=== PATIENT | female | born 1945 | race Caucasian/White ===

== ENCOUNTER 2017-02-21 11:16 | Emergency (ER) | payer MEDICARE ==
[~2017-02-21] VITALS: Ht 154.9 cm; Wt 68.0 kg
[~2017-02-21 11:16] MED LIST: FLUO20TA11 PO; HYDR-2678 PO; INSU100I17 SQ; INSU100V8 SQ; METO-269 PO
[2017-02-21 12:27] LABS: BASO # 0.1 x10^3/uL (0.0-0.2); BASO % 1 % (0-3); EOS % 3 % (0-3); HEMATOCRIT 29.9 % (36.0-47.0); LYMPH # 1.9 x10^3/uL (1.0-4.8); LYMPH % 19 % (24-48); MEAN CORPUSCULAR HEMOGLOBIN 31 pg (25-35); MEAN CORPUSCULAR HGB CONC 34 g/dL (31-37); MEAN CORPUSCULAR VOLUME 91 fL (79-100); MONO % 9 % (0-9); NEUT % 69 % (31-73); PLATELET COUNT 218 x10^3/uL (140-400); RED BLOOD COUNT 3.27 x10^6/uL (3.50-5.40); RED CELL DISTRIBUTION WIDTH 13.3 % (11.5-14.5); WHITE BLOOD COUNT 9.7 x10^3/uL (4.0-11.0)
[2017-02-21 12:37] LABS: CREATININE 1.1 mg/dL (0.6-1.0); GFR 48.8; POTASSIUM 4.8 mmol/L (3.5-5.1)
[2017-02-21 12:44] LABS: ALBUMIN 3.5 g/dL (3.4-5.0); ALBUMIN/GLOBULIN RATIO 1.1 (1.0-1.7); TOTAL BILIRUBIN 0.3 mg/dL (0.2-1.0); TOTAL PROTEIN 6.7 g/dL (6.4-8.2)
[2017-02-21] MEDS ORDERED: cloNIDine HCL 0.1 MG TABLET PO ONE (12:45)
--- NOTE | 2017-02-21 12:46 | ED.ADGEN ---
Past Medical History Past Medical History: Anxiety, Diabetes-Type I, Hypertension Past Surgical History: Cholecystectomy, Hysterectomy, Tubal ligation, Other Additional Past Surgical Histo: unknown Alcohol Use: None Drug Use: None Adult General Chief Complaint Chief Complaint: DIARRHEA HPI HPI Patient is a 71 year old female who presents with multiple episodes of watery diarrhea with fecal incontinence since last night. Patient reports intermittent diarrhea for 2 weeks, which she has treated with Imodium 3 days ago. Diarrhea briefly improved until it recurred last evening. Patient denies dizziness lightheadedness, nausea vomiting or fever. No recent antibiotic use. Patient released from the hospital one month ago for treatment of stroke with 2 week rehabilitation stay prior to returning home. Patient states while in the rehabilitation, she did have a C. difficile exposure to a fellow friend/ patient. Patient noted to be hypertensive on ED arrival. 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 Review of Systems Review of Systems ROS as per HPI. Current Medications Current Medications Current Medications Medications (Trade) Dose Ordered Sig/Emma Start Time Stop Time Status Last Admin Dose Admin Clonidine HCl (Catapres) 0.2 mg 1X ONCE 02/21/17 12:45 02/21/17 12:46 DC 02/21/17 12:46 0.2 MG Oxycodone/ Acetaminophen (Percocet 5/325) 1 tab 1X ONCE 02/21/17 14:30 02/21/17 14:31 DC 02/21/17 14:23 1 TAB Allergies Allergies Allergies Coded Allergies Type Severity Reaction Last Updated Verified Penicillins Allergy Intermediate 05/17/14 Yes Physical Exam Physical Exam Constitutional: Well developed, well nourished, no acute distress. HENT: Normocephalic, atraumatic, bilateral external ears normal. Eyes: PERRLA, EOMI, conjunctiva normal. Neck: Normal range of motion. Cardiovascular:Heart rate regular rhythm. Lungs & Thorax: Bilateral breath sounds clear to auscultation. Abdomen: Bowel sounds normal, soft, no tenderness. Skin: Warm, dry. Back: No tenderness. Extremities: No tenderness, no cyanosis, no clubbing, ROM intact, no edema. Neurologic: Alert and oriented X 3, normal motor function, normal sensory function. Psychologic: Affect normal, judgement normal, mood normal. Current Patient Data Vital Signs Vital Signs Date Time Temp Pulse Resp B/P (MAP) Pulse Ox O2 Delivery O2 Flow Rate FiO2 02/21/17 15:44 72 20 119/54 (75) 97 02/21/17 15:30 Room Air 02/21/17 11:20 99.5 99.5 Lab Values Laboratory Tests Test 02/21/17 12:16 White Blood Count 9.7 x10^3/uL (4.0-11.0) Red Blood Count 3.27 x10^6/uL (3.50-5.40) L Hemoglobin 10.0 g/dL (12.0-15.5) L Hematocrit 29.9 % (36.0-47.0) L Mean Corpuscular Volume 91 fL (79-100) Mean Corpuscular Hemoglobin 31 pg (25-35) Mean Corpuscular Hemoglobin Concent 34 g/dL (31-37) Red Cell Distribution Width 13.3 % (11.5-14.5) Platelet Count 218 x10^3/uL (140-400) Neutrophils (%) (Auto) 69 % (31-73) Lymphocytes (%) (Auto) 19 % (24-48) L Monocytes (%) (Auto) 9 % (0-9) Eosinophils (%) (Auto) 3 % (0-3) Basophils (%) (Auto) 1 % (0-3) Neutrophils # (Auto) 6.7 x10^3uL (1.8-7.7) Lymphocytes # (Auto) 1.9 x10^3/uL (1.0-4.8) Monocytes # (Auto) 0.8 x10^3/uL (0.0-1.1) Eosinophils # (Auto) 0.3 x10^3/uL (0.0-0.7) Basophils # (Auto) 0.1 x10^3/uL (0.0-0.2) Sodium Level 141 mmol/L (136-145) Potassium Level 4.8 mmol/L (3.5-5.1) Chloride Level 107 mmol/L (98-107) Carbon Dioxide Level 26 mmol/L (21-32) Anion Gap 8 (6-14) Blood Urea Nitrogen 19 mg/dL (7-20) Creatinine 1.1 mg/dL (0.6-1.0) H Estimated GFR (Cockcroft-Gault) 48.8 BUN/Creatinine Ratio 17 (6-20) Glucose Level 155 mg/dL (70-99) H Calcium Level 9.0 mg/dL (8.5-10.1) Total Bilirubin 0.3 mg/dL (0.2-1.0) Aspartate Amino Transferase (AST) 25 U/L (15-37) Alanine Aminotransferase (ALT) 16 U/L (14-59) Alkaline Phosphatase 126 U/L (46-116) H Total Protein 6.7 g/dL (6.4-8.2) Albumin 3.5 g/dL (3.4-5.0) Albumin/Globulin Ratio 1.1 (1.0-1.7) Laboratory Tests 02/21/17 12:16 Laboratory Tests 02/21/17 12:16 EKG EKG [] Radiology/Procedures Radiology/Procedures Left hip/pelvis: No obvious displaced fracture.] Course & Med Decision Making Course & Med Decision Making Pertinent Labs and Imaging studies reviewed. (See chart for details) [Patient's abdomen soft, nontender. Lab work unremarkable. Patient does complain of chronic back pain and left hip pain is history of recent fall. No obvious injury on left hip. Will treat supportively with PCP follow-up. Return precautions reviewed.] Dragon Disclaimer Dragon Disclaimer This electronic medical record was generated, in whole or in part, using a voice recognition dictation system. ELE BRUCE DO Feb 21, 2017 12:46
[2017-02-21] MEDS ORDERED: oxyCODONE/APAP 5/325 1 TAB TABLET PO ONE (14:30)
--- NOTE | 2017-02-21 14:48 | RAD ---
Left hip radiograph with pelvis 02/21/2017 at 1440 hours Indication: Patient fell one week ago with left hip pain Comparison: 12/04/2013 Technique: AP view of the pelvis with 2 dedicated views of the left hip Findings: There is no acute fracture or dislocation. Degenerative changes are identified sepsis pubis. No significant joint space narrowing. Mild at the site of the noted along the left greater trochanter, worsened since 12/04/2013. Moderate degenerative changes of the lower lumbar spine appreciated. Impression: No acute fracture or dislocation.
[2017-02-21 15:44] VITALS: BP 119/54
--- NOTE | 2017-02-21 15:52 | EKG ---
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
== END 2017-02-21 15:45 | disposition home or self-care (01) ==
LOC: ER 11:16
DX: R19.7 Diarrhea, unspecified (principal); R15.9 Full incontinence of feces; G89.29 Other chronic pain; M54.9 Dorsalgia, unspecified; M25.552 Pain in left hip; F41.9 Anxiety disorder, unspecified; E10.9 Type 1 diabetes mellitus without complications; I10 Essential (primary) hypertension; Z90.49 Acquired absence of other specified parts of digestive tract; Z90.710 Acquired absence of both cervix and uterus; Z98.51 Tubal ligation status; Z88.0 Allergy status to penicillin
CPT/HCPCS: 36415; 73502; 80053; 85027; 87324; 93005; 99285-25

== ENCOUNTER 2018-08-29 04:21 | Inpatient (IN) | payer MEDICARE ==
[~2018-08-29] VITALS: Ht 154.9 cm; Wt 62.4 kg
[2018-08-29] VITALS (24 sets, daily range): BP systolic 107–190; BP diastolic 49–98
[~2018-08-29 04:21] MED LIST changes: +0.9 % SOD CHL for STERILE FIELD 10 ML DISP.SYRIN. ONE; +ONDANSETRON PF 4 MG/2 ML VIAL. ONE
[2018-08-29] MEDS ORDERED: IV NORMAL SALINE 500ML BAG 500 ML IV ONE (05:00)
[2018-08-29 05:15] LABS: BASO # 0.1 x10^3/uL (0.0-0.2); BASO % 1 % (0-3); EOS # 0.1 x10^3/uL (0.0-0.7); EOS % 2 % (0-3); LYMPH # 1.4 x10^3/uL (1.0-4.8); LYMPH % 19 % (24-48); MEAN CORPUSCULAR HEMOGLOBIN 25 pg (25-35); MEAN CORPUSCULAR HGB CONC 32 g/dL (31-37); MEAN CORPUSCULAR VOLUME 78 fL (79-100); MONO # 0.7 x10^3/uL (0.0-1.1); MONO % 9 % (0-9); NEUT # 5.3 x10^3uL (1.8-7.7); NEUT % 70 % (31-73); PLATELET COUNT 221 x10^3/uL (140-400); RED BLOOD COUNT 2.02 x10^6/uL (3.50-5.40); RED CELL DISTRIBUTION WIDTH 14.6 % (11.5-14.5); WHITE BLOOD COUNT 7.6 x10^3/uL (4.0-11.0)
[2018-08-29 05:21] LABS: HEMATOCRIT 15.7 % (36.0-47.0)
[2018-08-29 05:23] LABS: PROTHROMBIN TIME PATIENT 18.1 SEC (11.7-14.0)
[2018-08-29 05:24] LABS: CALCIUM 8.5 mg/dL (8.5-10.1); CREATININE 1.5 mg/dL (0.6-1.0); GFR 33.9; POTASSIUM 4.2 mmol/L (3.5-5.1)
[2018-08-29 05:31] LABS: ALBUMIN 2.7 g/dL (3.4-5.0); ALBUMIN/GLOBULIN RATIO 0.8 (1.0-1.7); TOTAL BILIRUBIN 0.2 mg/dL (0.2-1.0); TOTAL PROTEIN 5.9 g/dL (6.4-8.2)
--- NOTE | 2018-08-29 05:51 | PHYS DOC ---
Past Medical History Past Medical History: Anxiety, CVA, Depression, Diabetes-Type I, GERD, High Cholesterol, Hypertension Additional Past Medical Histor: URINARY RETENTION, Past Surgical History: Cholecystectomy, Hysterectomy, Tubal ligation, Other Additional Past Surgical Histo: unknown Alcohol Use: None Drug Use: None Adult General Chief Complaint Chief Complaint: HEMATEMESIS/VOMITING BLOOD HPI HPI Patient is a 73 year old female presents with hematemesis starting earlier this morning. Patient is currently on Eloquis and aspirin. He reports dizziness , no chest pain, shortness of breath. Denies abdominal pain. No melena or fever manage she is here. History of acid reflux disease. [] Review of Systems Review of Systems ROS as per HPI[] All other systems were reviewed and found to be within normal limits, except as documented in this note. Current Medications Current Medications Current Medications Medications (Trade) Dose Ordered Sig/Emma Start Time Stop Time Status Last Admin Dose Admin Pantoprazole Sodium (PROTONIX VIAL for IV PUSH) 80 mg 1X ONCE 08/29/18 06:00 08/29/18 06:01 08/29/18 05:42 80 MG Pantoprazole Sodium 80 mg/ Sodium Chloride 100 ml @ 10 mls/hr 1X ONCE 08/29/18 06:00 08/29/18 15:59 08/29/18 05:40 10 MLS/HR Sodium Chloride 500 ml @ 500 mls/hr 1X ONCE 08/29/18 05:00 08/29/18 05:59 08/29/18 04:48 500 MLS/HR Allergies Allergies Allergies Coded Allergies Type Severity Reaction Last Updated Verified Penicillins Allergy Intermediate 05/17/14 Yes Physical Exam Physical Exam Constitutional: Well developed, well nourished, no acute distress, non-toxic appearance. [] HENT: Normocephalic, atraumatic, bilateral external ears normal, oropharynx moist, no oral exudates, nose normal. [] Eyes: PERRLA, EOMI, conjunctiva normal. [] Neck: Normal range of motion, no tenderness. [] Cardiovascular:Heart rate regular rhythm, no murmur [] Lungs & Thorax: Bilateral breath sounds clear to auscultation [] Abdomen: Bowel sounds normal, soft, epigastric pain tenderness. [] Skin: Warm, dry, no erythema, no rash. [] Back: No tenderness. [] Extremities: No tenderness. [] Neurologic: Alert and oriented X 3, normal motor function, normal sensory function, no focal deficits noted. [] Psychologic: Affect normal, judgement normal, mood normal. [] Current Patient Data Vital Signs Vital Signs Date Time Temp Pulse Resp B/P (MAP) Pulse Ox O2 Delivery O2 Flow Rate FiO2 08/29/18 04:21 98.6 103 20 137/90 (106) 99 Room Air 98.6 Lab Values Laboratory Tests Test 08/29/18 04:45 White Blood Count 7.6 x10^3/uL (4.0-11.0) Red Blood Count 2.02 x10^6/uL (3.50-5.40) L Hemoglobin 5.0 g/dL (12.0-15.5) *L Hematocrit 15.7 % (36.0-47.0) *L Mean Corpuscular Volume 78 fL (79-100) L Mean Corpuscular Hemoglobin 25 pg (25-35) Mean Corpuscular Hemoglobin Concent 32 g/dL (31-37) Red Cell Distribution Width 14.6 % (11.5-14.5) H Platelet Count 221 x10^3/uL (140-400) Neutrophils (%) (Auto) 70 % (31-73) Lymphocytes (%) (Auto) 19 % (24-48) L Monocytes (%) (Auto) 9 % (0-9) Eosinophils (%) (Auto) 2 % (0-3) Basophils (%) (Auto) 1 % (0-3) Neutrophils # (Auto) 5.3 x10^3uL (1.8-7.7) Lymphocytes # (Auto) 1.4 x10^3/uL (1.0-4.8) Monocytes # (Auto) 0.7 x10^3/uL (0.0-1.1) Eosinophils # (Auto) 0.1 x10^3/uL (0.0-0.7) Basophils # (Auto) 0.1 x10^3/uL (0.0-0.2) Prothrombin Time 18.1 SEC (11.7-14.0) H Prothrombin Time INR 1.5 (0.8-1.1) H PTT 28 SEC (24-38) Sodium Level 137 mmol/L (136-145) Potassium Level 4.2 mmol/L (3.5-5.1) Chloride Level 105 mmol/L (98-107) Carbon Dioxide Level 22 mmol/L (21-32) Anion Gap 10 (6-14) Blood Urea Nitrogen 26 mg/dL (7-20) H Creatinine 1.5 mg/dL (0.6-1.0) H Estimated GFR (Cockcroft-Gault) 33.9 BUN/Creatinine Ratio 17 (6-20) Glucose Level 236 mg/dL (70-99) H Calcium Level 8.5 mg/dL (8.5-10.1) Total Bilirubin 0.2 mg/dL (0.2-1.0) Aspartate Amino Transferase (AST) 11 U/L (15-37) L Alanine Aminotransferase (ALT) 12 U/L (14-59) L Alkaline Phosphatase 60 U/L (46-116) Total Protein 5.9 g/dL (6.4-8.2) L Albumin 2.7 g/dL (3.4-5.0) L Albumin/Globulin Ratio 0.8 (1.0-1.7) L Lipase 98 U/L (73-393) Laboratory Tests 08/29/18 04:45 Laboratory Tests 08/29/18 04:45 EKG EKG [EKG: reviewed] Radiology/Procedures Radiology/Procedures [] Course & Med Decision Making Course & Med Decision Making Pertinent Labs and Imaging studies reviewed. (See chart for details) [Acute blood loss anemia secondary upper GI bleed. Transfusion ordered. Vital signs stable. GI consulted. Dr. Aguilera consulted. ] Dragon Disclaimer Dragon Disclaimer This electronic medical record was generated, in whole or in part, using a voice recognition dictation system. Departure Departure Impression: Primary Impression: Upper GI bleeding Disposition: ADMITTED INPATIENT Condition: IMPROVED Referrals: KAYDEN AYALA DO (PCP) ELE BRUCE DO Aug 29, 2018 05:51
[2018-08-29] MEDS ORDERED: PANTOPRAZOLE IV PUSH 40 MG VIAL. IVP ONE (06:00)
[2018-08-29] MEDS ORDERED: PANTOPRAZOLE SODIUM IV DRIP 80 MG in IV NORMAL SALINE 100ML 100 ML IV ONE (06:00)
[2018-08-29] MEDS ORDERED: ONDANSETRON PF 4 MG/2 ML VIAL. IV PRN ×2 (06:15→11:30)
[2018-08-29] MEDS ORDERED: IV NORMAL SALINE 1000ML BAG 1,000 ML IV SCH (06:30)
--- NOTE | 2018-08-29 06:44 | EKG ---
[facility] [address] [place] [address] Test Date: 2018-08-29 Test Time: 04:27:11 Pat Name: EMMA ESTRADA Department: Room: [facility] 1 Gender: F Clerical Supervisor: : 1945 Requested By: RODGER RHODES Order Number: [id number] Reading MD: Measurements Intervals [place] Rate: 95 P: 37 DE: 142 QRS: 11 QRSD: 68 T: 59 QT: 354 QTc: 448 Interpretive Statements SINUS RHYTHM NORMAL ECG No previous ECG available for comparison
--- NOTE | 2018-08-29 08:50 | PDOC2 ---
GI CONSULT Reason For Consult: Upper abd pain HPI: HPI: 73 y/o female sent to ER for hematemesis at rehab, admitted to ICU. She's not the best historian - mostly concerned w/ needing pain medication for chronic right arm and right leg pain since her stroke. She thinks she vomited red blood a couple times in the last 24 hours. Per RN, no bleeding since admission. Labs notable for Hgb 5 - has transfused 1 unit and is on PPI drip. MCV 78, INR 1.5, BUN 26, Cr 1.5. For comparison, Hgb was 10 in 02/2017 and 12.6 in 05/2014. Both BUN and Cr elevated similarly in the past. MCV previously normal. Chart lists Eliquis and ASA - she doesn't really know what she takes except probably hydrocodone for pain. Has occasional heartburn and takes "something" for this occasionally. Denies dysphagia, coffee-ground emesis, constipation, melena, hematochezia, or change in appetite. Not sure about weight loss. Has some upper abdominal pain earlier that has resolved. Has occasionally diarrhea "but everyone at rehab does." Reports EGD long ago, unclear why performed or what found. Denies h/o ulcers. Not sure if ever had a colonoscopy but probably did. S/p cholecystectomy. Denies liver or pancreas history. PMH: PMH: mostly obtained per chart - CVA, ?RA, HTN, HLD, DM, subdural hematoma, ?CKD cholecystectomy, hysterectomy, tubal ligation FH: Family History: Cancer (sister - breast) Social History: Smoke: No ALCOHOL: none Drugs: None ROS: GEN: Denies fevers, chills, sweats HEENT: Denies blurred vision, sore throat CV: Denies chest pain RESP: Denies shortness of air, cough GI: Per HPI : Denies hematuria, dysuria ENDO: Denies weight changes NEURO: Denies confusion, dizziness MSK: right arm and leg pain SKIN: Denies jaundice, pruritus Vitals: Vitals: Vital Signs Date Time Temp Pulse Resp B/P (MAP) Pulse Ox O2 Delivery O2 Flow Rate FiO2 08/29/18 06:43 98.9 87 20 127/56 98.9 08/29/18 06:15 100 Room Air Labs: Labs: Laboratory Tests Test 08/29/18 04:45 White Blood Count 7.6 x10^3/uL (4.0-11.0) Red Blood Count 2.02 x10^6/uL (3.50-5.40) Hemoglobin 5.0 g/dL (12.0-15.5) Hematocrit 15.7 % (36.0-47.0) Mean Corpuscular Volume 78 fL (79-100) Mean Corpuscular Hemoglobin 25 pg (25-35) Mean Corpuscular Hemoglobin Concent 32 g/dL (31-37) Red Cell Distribution Width 14.6 % (11.5-14.5) Platelet Count 221 x10^3/uL (140-400) Neutrophils (%) (Auto) 70 % (31-73) Lymphocytes (%) (Auto) 19 % (24-48) Monocytes (%) (Auto) 9 % (0-9) Eosinophils (%) (Auto) 2 % (0-3) Basophils (%) (Auto) 1 % (0-3) Neutrophils # (Auto) 5.3 x10^3uL (1.8-7.7) Lymphocytes # (Auto) 1.4 x10^3/uL (1.0-4.8) Monocytes # (Auto) 0.7 x10^3/uL (0.0-1.1) Eosinophils # (Auto) 0.1 x10^3/uL (0.0-0.7) Basophils # (Auto) 0.1 x10^3/uL (0.0-0.2) Prothrombin Time 18.1 SEC (11.7-14.0) Prothromb Time International Ratio 1.5 (0.8-1.1) Activated Partial Thromboplast Time 28 SEC (24-38) Sodium Level 137 mmol/L (136-145) Potassium Level 4.2 mmol/L (3.5-5.1) Chloride Level 105 mmol/L (98-107) Carbon Dioxide Level 22 mmol/L (21-32) Anion Gap 10 (6-14) Blood Urea Nitrogen 26 mg/dL (7-20) Creatinine 1.5 mg/dL (0.6-1.0) Estimated GFR (Cockcroft-Gault) 33.9 BUN/Creatinine Ratio 17 (6-20) Glucose Level 236 mg/dL (70-99) Calcium Level 8.5 mg/dL (8.5-10.1) Total Bilirubin 0.2 mg/dL (0.2-1.0) Aspartate Amino Transf (AST/SGOT) 11 U/L (15-37) Alanine Aminotransferase (ALT/SGPT) 12 U/L (14-59) Alkaline Phosphatase 60 U/L (46-116) Total Protein 5.9 g/dL (6.4-8.2) Albumin 2.7 g/dL (3.4-5.0) Albumin/Globulin Ratio 0.8 (1.0-1.7) Lipase 98 U/L (73-393) Allergies: Coded Allergies: Penicillins (Verified Allergy, Intermediate, 05/17/14) Medications: Current Medications Medications (Trade) Dose Ordered Sig/Emma Route PRN Reason Start Time Stop Time Status Last Admin Dose Admin Sodium Chloride 500 ml @ 500 mls/hr 1X ONCE IV 08/29/18 05:00 08/29/18 05:59 DC 08/29/18 04:48 Pantoprazole Sodium 80 mg/ Sodium Chloride 100 ml @ 10 mls/hr 1X ONCE IV 08/29/18 06:00 08/29/18 15:59 08/29/18 05:40 Pantoprazole Sodium (PROTONIX VIAL for IV PUSH) 80 mg 1X ONCE IVP 08/29/18 06:00 08/29/18 06:01 DC 08/29/18 05:42 Sodium Chloride 1,000 ml @ 125 mls/hr Q8H IV 08/29/18 06:30 08/30/18 06:29 08/29/18 08:13 PE: GEN: NAD HEENT: Atraumatic, PERRL LUNGS: clear anteriorly, NC HEART: RRR ABD: NABS, S/ND/NT EXTREMITY: No edema SKIN: No rashes, no jaundice NEURO/PSYCH: A & O 3, anxious A/P: A/P: Hematemesis - prior to admission Upper abd pain - resolved, no imaging yet Profound anemia, microcytic H/o CVA on Eliquis and ASA Occasional heartburn CRC screen - unclear S/p cholecystectomy Chronic pain -- Offered EGD this morning, explained procedure and indications in detail - she says she's scared and needs to think about it. Her biggest concern seems to be right arm and right leg pain, requesting pain meds. Transfuse 2 more units pRBCs, continue PPI and NPO, hopefully will consent. PATRICIA SWANSON Aug 29, 2018 08:50
[2018-08-29] MEDS ORDERED: METF500T16 PO (08:55)
[2018-08-29] MEDS ORDERED: TRAZ-85 PO (08:55)
[2018-08-29] MEDS ORDERED: APIX2.5T PO (08:55)
[2018-08-29] MEDS ORDERED: SERT100T PO (08:55)
[2018-08-29] MEDS ORDERED: CHOL2000 PO (08:55)
[2018-08-29] MEDS ORDERED: LISI-334 PO (08:55)
[2018-08-29] MEDS ORDERED: SITA50TA PO (08:55)
[2018-08-29] MEDS ORDERED: ASPI-630 PO (08:55)
[2018-08-29] MEDS ORDERED: PANT40GR PO (08:55)
[2018-08-29] MEDS ORDERED: CARV25TA2 PO (08:55)
[2018-08-29] MEDS ORDERED: DULA1.5P SQ (08:55)
[2018-08-29] MEDS ORDERED: BETH25TA PO (08:55)
[2018-08-29] MEDS ORDERED: BUSP5TAB PO (08:55)
[2018-08-29] MEDS ORDERED: ATOR20TA58 PO (08:55)
[2018-08-29] MEDS ORDERED: LORA10TA68 PO (08:55)
[2018-08-29] MEDS ORDERED: HYDROmorphone 2 MG/ML VIAL IV ONE (09:15)
[2018-08-29] MEDS: IV RINGERS,LACTATED 1000ML 1,000 ML IV SCH ×2 (10:00→18:00)
[2018-08-29] MEDS ORDERED: fentaNYL PF VIAL 100 MCG/2 ML VIAL IV PRN ×2 (10:15)
[2018-08-29] MEDS ORDERED: LIDOCAINE 1% PF 2 ML VIAL. ID PRN (10:15)
[2018-08-29] MEDS ORDERED: MIDAZOLAM HCL/PF 2 MG/2 ML VIAL. IV PRN (10:15)
[2018-08-29] MEDS ORDERED: PROPOFOL 20 ML IV ONE ×2 (10:21→10:45)
--- NOTE | 2018-08-29 11:05 | PDOC4 ---
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
[2018-08-29] MEDS ORDERED: IOHEXOL 300 MG/ML 100ML VIAL. ONE (11:28)
[2018-08-29] MEDS ORDERED: LIDOCAINE WITH 8.4% SOD BICARB 3 ML DISP.SYRIN. ONE (11:29)
--- NOTE | 2018-08-29 11:29 | PDOC1 ---
History and Physical Date of Admission Date of Admission 08/29/18 Identification/Chief Complaint Chief Complaint hematemesis Source Source: Chart review, Patient History of Present Illness History of Present Illness HPI HPI Patient is a 73 year old female presents with hematemesis starting earlier this morning x2 times. pt said she was taking eliquis and ASA for stroke, not sure why. recently in healthcare resort post stroke, rt leg weakness. Pt vomited 2 times blood today, with mild abd pain 1 week ago. no chest pain, sob, fever, chills. denies h/o GI issues, denies NSAIDS, never got EGD OR colonoscopy. denies melena. Hb 5 in ER, 3 u PRBC currently IN icu. Past Medical History Cardiovascular: HTN CENTRAL NERVOUS SYSTEM: CVA Endocrine: Diabetes Past Surgical History Past Surgical History: Cholecystectomy, Tubal Ligation, Hysterectomy Social History Smoke: No ALCOHOL: none Drugs: None Current Problem List Problem List Problems Medical Problems: (1) Upper GI bleeding Status: Acute Current Medications Current Medications Current Medications Medications (Trade) Dose Ordered Sig/Emma Start Time Stop Time Status Last Admin Dose Admin Fentanyl Citrate (Fentanyl 2ml Vial) 50 mcg PRN Q5MIN PRN 08/29/18 10:15 08/29/18 18:00 Hydromorphone HCl (Dilaudid) 0.5 mg 1X ONCE 08/29/18 09:15 08/29/18 09:16 DC 08/29/18 09:19 0.5 MG Lidocaine HCl (Xylocaine-Mpf 1% 2ml Vial) 2 ml 1X PRN PRN 08/29/18 10:15 08/29/18 18:00 Midazolam HCl (Versed) 2 mg PRN 1X PRN 08/29/18 10:15 08/29/18 18:00 Ondansetron HCl (Zofran) 4 mg STK-MED ONCE 08/29/18 00:12 08/29/18 08:18 DC Pantoprazole Sodium (PROTONIX VIAL for IV PUSH) 80 mg 1X ONCE 08/29/18 06:00 08/29/18 06:01 DC 08/29/18 05:42 80 MG Pantoprazole Sodium 80 mg/ Sodium Chloride 100 ml @ 10 mls/hr 1X ONCE 08/29/18 06:00 08/29/18 15:59 08/29/18 05:40 10 MLS/HR Propofol 20 ml @ As Directed STK-MED ONCE 08/29/18 10:45 08/29/18 10:47 DC Ringer's Solution 1,000 ml @ 125 mls/hr Q8H 08/29/18 10:00 08/29/18 18:00 Sodium Chloride (NORMAL SALINE FLUSH for STERILE FIELD) 10 ml STK-MED ONCE 08/29/18 00:12 08/29/18 08:18 DC Allergies Allergies Allergies Coded Allergies Type Severity Reaction Last Updated Verified Penicillins Allergy Intermediate 08/29/18 Yes ROS Review of System CONSTITUTIONAL: No fever or chills EYES: No recent changes SKIN: No rash or itching CARDIOVASCULAR: No chest pain, syncope, palpitations, or edema RESPIRATORY: No SOB or cough GASTROINTESTINAL: No nausea, vomiting or abdominal pain NEUROLOGICAL: No headaches or weakness ENDOCRINE: No cold or heat intolerance GENITOURINARY: No urgency or frequency of urination MUSCULOSKELETAL: No back pain or joint pain LYMPHATICS: No enlarged lymph nodes PSYCHIATRIC: No anxiety or depression Physical Exam Physical Exam GEN.: No apparent distress. Alert and oriented. HEENT: Head is normocephalic, atraumatic NECK: Supple. LUNGS: Clear to auscultation. HEART: RRR, S1, S2 present. Peripheral pulses intact ABDOMEN: Soft, nontender. Positive bowel sounds. EXTREMITIES: Without any cyanosis. LEft LEG strength 4/5, rt leg 3/5 NEUROLOGIC: Normal speech, normal tone PSYCHIATRIC: Normal affect, normal mood. SKIN: No ulcerations Vitals Vitals Vital Signs Date Time Temp Pulse Resp B/P (MAP) Pulse Ox O2 Delivery O2 Flow Rate FiO2 08/29/18 10:55 98.0 94 16 129/60 94 Nasal Cannula 4 98.0 Labs Labs Laboratory Tests Test 08/29/18 04:45 White Blood Count 7.6 x10^3/uL (4.0-11.0) Red Blood Count 2.02 x10^6/uL (3.50-5.40) Hemoglobin 5.0 g/dL (12.0-15.5) Hematocrit 15.7 % (36.0-47.0) Mean Corpuscular Volume 78 fL (79-100) Mean Corpuscular Hemoglobin 25 pg (25-35) Mean Corpuscular Hemoglobin Concent 32 g/dL (31-37) Red Cell Distribution Width 14.6 % (11.5-14.5) Platelet Count 221 x10^3/uL (140-400) Neutrophils (%) (Auto) 70 % (31-73) Lymphocytes (%) (Auto) 19 % (24-48) Monocytes (%) (Auto) 9 % (0-9) Eosinophils (%) (Auto) 2 % (0-3) Basophils (%) (Auto) 1 % (0-3) Neutrophils # (Auto) 5.3 x10^3uL (1.8-7.7) Lymphocytes # (Auto) 1.4 x10^3/uL (1.0-4.8) Monocytes # (Auto) 0.7 x10^3/uL (0.0-1.1) Eosinophils # (Auto) 0.1 x10^3/uL (0.0-0.7) Basophils # (Auto) 0.1 x10^3/uL (0.0-0.2) Prothrombin Time 18.1 SEC (11.7-14.0) Prothromb Time International Ratio 1.5 (0.8-1.1) Activated Partial Thromboplast Time 28 SEC (24-38) Sodium Level 137 mmol/L (136-145) Potassium Level 4.2 mmol/L (3.5-5.1) Chloride Level 105 mmol/L (98-107) Carbon Dioxide Level 22 mmol/L (21-32) Anion Gap 10 (6-14) Blood Urea Nitrogen 26 mg/dL (7-20) Creatinine 1.5 mg/dL (0.6-1.0) Estimated GFR (Cockcroft-Gault) 33.9 BUN/Creatinine Ratio 17 (6-20) Glucose Level 236 mg/dL (70-99) Calcium Level 8.5 mg/dL (8.5-10.1) Total Bilirubin 0.2 mg/dL (0.2-1.0) Aspartate Amino Transf (AST/SGOT) 11 U/L (15-37) Alanine Aminotransferase (ALT/SGPT) 12 U/L (14-59) Alkaline Phosphatase 60 U/L (46-116) Total Protein 5.9 g/dL (6.4-8.2) Albumin 2.7 g/dL (3.4-5.0) Albumin/Globulin Ratio 0.8 (1.0-1.7) Lipase 98 U/L (73-393) Laboratory Tests Test 08/29/18 04:45 White Blood Count 7.6 x10^3/uL (4.0-11.0) Red Blood Count 2.02 x10^6/uL (3.50-5.40) Hemoglobin 5.0 g/dL (12.0-15.5) Hematocrit 15.7 % (36.0-47.0) Mean Corpuscular Volume 78 fL (79-100) Mean Corpuscular Hemoglobin 25 pg (25-35) Mean Corpuscular Hemoglobin Concent 32 g/dL (31-37) Red Cell Distribution Width 14.6 % (11.5-14.5) Platelet Count 221 x10^3/uL (140-400) Neutrophils (%) (Auto) 70 % (31-73) Lymphocytes (%) (Auto) 19 % (24-48) Monocytes (%) (Auto) 9 % (0-9) Eosinophils (%) (Auto) 2 % (0-3) Basophils (%) (Auto) 1 % (0-3) Neutrophils # (Auto) 5.3 x10^3uL (1.8-7.7) Lymphocytes # (Auto) 1.4 x10^3/uL (1.0-4.8) Monocytes # (Auto) 0.7 x10^3/uL (0.0-1.1) Eosinophils # (Auto) 0.1 x10^3/uL (0.0-0.7) Basophils # (Auto) 0.1 x10^3/uL (0.0-0.2) Prothrombin Time 18.1 SEC (11.7-14.0) Prothromb Time International Ratio 1.5 (0.8-1.1) Activated Partial Thromboplast Time 28 SEC (24-38) Sodium Level 137 mmol/L (136-145) Potassium Level 4.2 mmol/L (3.5-5.1) Chloride Level 105 mmol/L (98-107) Carbon Dioxide Level 22 mmol/L (21-32) Anion Gap 10 (6-14) Blood Urea Nitrogen 26 mg/dL (7-20) Creatinine 1.5 mg/dL (0.6-1.0) Estimated GFR (Cockcroft-Gault) 33.9 BUN/Creatinine Ratio 17 (6-20) Glucose Level 236 mg/dL (70-99) Calcium Level 8.5 mg/dL (8.5-10.1) Total Bilirubin 0.2 mg/dL (0.2-1.0) Aspartate Amino Transf (AST/SGOT) 11 U/L (15-37) Alanine Aminotransferase (ALT/SGPT) 12 U/L (14-59) Alkaline Phosphatase 60 U/L (46-116) Total Protein 5.9 g/dL (6.4-8.2) Albumin 2.7 g/dL (3.4-5.0) Albumin/Globulin Ratio 0.8 (1.0-1.7) Lipase 98 U/L (73-393) VTE Prophylaxis Ordered VTE Prophylaxis Devices: Yes VTE Pharmacological Prophylaxi: No Assessment/Plan Assessment/Plan hematemesis 2/2 Dielufuoy lesion anemia 2/2 GIB, upper dm2 htn hld h/o CVA with rt leg weakness on eliquis and asa GERD anxiety depression mild malnutrition benign esophageal stricutre s/p mild dilation in EGD WARD, vasomotor plan: icu care 3 u PRBC today, repeat hb at 4pm and tmr. Fu with GI, EGD today, found stomach dielufuoy lesion with clots npo, ivf NS 75cc/h, protonix drip as per gi hold asa, eliquis, lisinopril. decrease coreg to 6.25mg bid cont some other home meds if ok with gi PTOT FC BART MORROW MD Aug 29, 2018 11:28
[2018-08-29] MEDS ORDERED: ACETAMINOPHEN 325 MG TABLET. PO PRN (11:30)
[2018-08-29] MEDS: IV NORMAL SALINE 1000ML BAG 1,000 ML IV SCH ×2 (11:30→21:04)
[2018-08-29] MEDS ORDERED: DOCUSATE SODIUM 100 MG CAPSULE. PO PRN (11:30)
[2018-08-29] MEDS ORDERED: hydrALAZINE 20 MG/ML VIAL. IVP PRN (11:30)
[2018-08-29] MEDS: SERTRALINE 50 MG TABLET. PO SCH (12:00)
[2018-08-29] MEDS: CARVEDILOL 6.25 MG TABLET. PO SCH ×2 (12:00→17:00)
[2018-08-29] MEDS ORDERED: LISINOPRIL 20 MG TABLET PO SCH (12:00)
[2018-08-29] MEDS ORDERED: CARVEDILOL 12.5 MG TABLET. PO SCH (12:00)
[2018-08-29] MEDS ORDERED: MIDAZOLAM HCL/PF 2 MG/2 ML VIAL. ONE (12:19)
[2018-08-29] MEDS ORDERED: fentaNYL PF VIAL 100 MCG/2 ML VIAL ONE (12:19)
--- NOTE | 2018-08-29 12:47 | PDOC ---
Provider Note Provider Note IR NOTE 73 year old female with Hx of recent hematemesis. Amount difficult to ascertain due to drinking grape and cranberry juice at same time. Has not had any upper or lower gi bleeding since being in the hospital . She went for upper endoscopy which showed no active bleed. Some adherent clot seen in gastric cardia, per conversation with GI dr. Her BP is normal, and has been throughout. She was anemic at presentation with Hb 5. No recheck yet. getting third unit of blood now. She was on eliquis outpatient, last dose yesterday. Cr mildly elevated at 1.5. Recs: 1.Continue supportive care/resuscitation. Angiography would most likely be negative at current time without active bleeding and clinical status does not warrant empiric embolization. Also this will allow for eliquis effect to lessen. 2. If there is rebleeding, and she remains stable, consider repeat endoscopy to avoid contrast in the setting of mild renal failure. If hemostasis not possible via endoscopy, clip localization of bleeding could be performed to help target embolotherapy if ultimately needed. CTA could also be used for localization, but of course requires contrast. If she bleeds and becomes unstable, emergent angiography and embolization should be re-addressed. THIAGO WHEAT MD Aug 29, 2018 12:47
--- NOTE | 2018-08-29 13:25 | PDOC2 ---
KVNG ZEE HOTEL ROOM ATTENDANT 08/29/18 1325: CONSULT Date of Consult Date of Consult DATE: 08/29/18 TIME: 13:16 Reason for Consult Reason for Consult: gi bleed Referring Physician Referring Physician: Dr Aguilera Identification/Chief Complaint Chief Complaint abdominal pain Source Source: Chart review, Patient History of Present Illness Reason for Visit: Very poor historian Keeps telling me she needs to go to bathroom Complaints of leg pain Admitted with hematemesis--Dr Aguilera scoped found adherent clot and Dieulafoy lesion IR has evaluated -no current plans Past Medical History Cardiovascular: HTN CENTRAL NERVOUS SYSTEM: CVA Endocrine: Diabetes Past Surgical History Past Surgical History: Cholecystectomy, Tubal Ligation, Hysterectomy Social History No ALCOHOL: none Drugs: None Current Problem List Problem List Problems Medical Problems: (1) Upper GI bleeding Status: Acute Current Medications Current Medications Current Medications Sodium Chloride 500 ml @ 500 mls/hr 1X ONCE IV Last administered on at 04:48; Start 08/29/18 at 05:00; Stop 08/29/18 at 05:59; Status DC Pantoprazole Sodium 80 mg/ Sodium Chloride 100 ml @ 10 mls/hr 1X ONCE IV Last administered on 08/29/18at 05:40; Start 08/29/18 at 06:00; Stop 08/29/18 at 15:59 Pantoprazole Sodium (PROTONIX VIAL for IV PUSH) 80 mg 1X ONCE IVP Last administered on 08/29/18at 05:42; Start 08/29/18 at 06:00; Stop 08/29/18 at 06:01 ; Status DC Ondansetron HCl (Zofran) 4 mg PRN Q8HRS PRN IV NAUSEA/VOMITING 1ST CHOICE; Start 08/29/18 at 06:15; Stop 08/30/18 at 06:14 Sodium Chloride 1,000 ml @ 125 mls/hr Q8H IV Last administered on 08/29/18at 08 :13; Start 08/29/18 at 06:30; Stop 08/29/18 at 11:26; Status DC Ondansetron HCl (Zofran) 4 mg STK-MED ONCE .ROUTE ; Start 08/29/18 at 00:12; Stop 08/29/18 at 08:18; Status DC Sodium Chloride (NORMAL SALINE FLUSH for STERILE FIELD) 10 ml STK-MED ONCE .ROUTE ; Start 08/29/18 at 00:12; Stop 08/29/18 at 08:18; Status DC Hydromorphone HCl (Dilaudid) 0.5 mg 1X ONCE IV Last administered on 08/29/18at 09:19; Start 08/29/18 at 09:15; Stop 08/29/18 at 09:16; Status DC Midazolam HCl (Versed) 2 mg PRN 1X PRN IV PRIOR TO PROCEDURE; Start 08/29/18 at 10:15; Stop 08/29/18 at 18:00 Fentanyl Citrate (Fentanyl 2ml Vial) 25 mcg PRN Q5MIN PRN IV X 2 DOSES FOR PAIN ; Start 08/29/18 at 10:15; Stop 08/29/18 at 18:00 Fentanyl Citrate (Fentanyl 2ml Vial) 50 mcg PRN Q5MIN PRN IV X 2 DOSES FOR PAIN ; Start 08/29/18 at 10:15; Stop 08/29/18 at 18:00 Ringer's Solution 1,000 ml @ 125 mls/hr Q8H IV ; Start 08/29/18 at 10:00; Stop 08/29/18 at 18:00 Lidocaine HCl (Xylocaine-Mpf 1% 2ml Vial) 2 ml 1X PRN PRN ID IV START; Start at 10:15; Stop 08/29/18 at 18:00 Propofol 20 ml @ As Directed STK-MED ONCE IV ; Start 08/29/18 at 10:21; Stop at 10:22; Status DC Propofol 20 ml @ As Directed STK-MED ONCE IV ; Start 08/29/18 at 10:45; Stop at 10:47; Status DC Atorvastatin Calcium (Lipitor) 20 mg HS PO ; Start 08/29/18 at 21:00 Buspirone HCl (Buspar) 5 mg TID PO ; Start 08/29/18 at 14:00 Lisinopril (Prinivil) 20 mg DAILY PO ; Start 08/29/18 at 12:00; Stop 08/29/18 at 12:00; Status DC Trazodone HCl (Desyrel) 50 mg HS PO ; Start 08/29/18 at 21:00 Carvedilol (Coreg) 12.5 mg BIDWMEALS PO ; Start 08/29/18 at 12:00; Stop at 12:00; Status DC Sertraline HCl (Zoloft) 100 mg DAILY PO ; Start 08/29/18 at 12:00 Carvedilol (Coreg) 6.25 mg BIDWMEALS PO ; Start 08/29/18 at 12:00 Acetaminophen (Tylenol) 650 mg PRN Q6HRS PRN PO FEVER; Start 08/29/18 at 11:30 Ondansetron HCl (Zofran) 4 mg PRN Q6HRS PRN IV NAUSEA/VOMITING; Start 08/29/18 at 11:30 Morphine Sulfate (Morphine Sulfate) 2 mg PRN Q2HR PRN IV MODERATE TO SEVERE PAIN; Start 08/29/18 at 11:30 Tramadol HCl (Ultram) 50 mg PRN Q6HRS PRN PO MILD TO MODERATE PAIN; Start 08/29 at 11:30 Hydralazine HCl (Apresoline Inj) 10 mg PRN Q4HRS PRN IVP ELEVATED BP, SEE COMMENTS; Start 08/29/18 at 11:30 Docusate Sodium (Colace) 100 mg PRN DAILY PRN PO CONSTIPATION; Start 08/29/18 at 11:30 Sodium Chloride 1,000 ml @ 75 mls/hr [id number] IV ; Start 08/29/18 at 11:30 Iohexol (Omnipaque 300 Mg/ml) 100 ml STK-MED ONCE .ROUTE ; Start 08/29/18 at 11: 28; Stop 08/29/18 at 11:30; Status DC Heparin Sodium/ Sodium Chloride 1,500 ml @ As Directed STK-MED ONCE .ROUTE ; Start 08/29/18 at 11:28; Stop 08/29/18 at 11:30; Status DC Lidocaine/Sodium Bicarbonate (Buffered Lidocaine 1%) 3 ml STK-MED ONCE .ROUTE ; Start 08/29/18 at 11:29; Stop 08/29/18 at 11:31; Status DC Midazolam HCl (Versed) 2 mg STK-MED ONCE .ROUTE ; Start 08/29/18 at 12:19; Stop 08/29/18 at 12:21; Status DC Fentanyl Citrate (Fentanyl 2ml Vial) 100 mcg STK-MED ONCE .ROUTE ; Start at 12:19; Stop 08/29/18 at 12:21; Status DC Active Scripts Active Reported Vitamin D (Cholecalciferol (Vitamin D3)) 2,000 Unit Capsule 1 Cap PO DAILY Trulicity (Dulaglutide) 1.5 Mg/0.5 Ml Pen.injctr 1.5 Mg SQ WEEKLYAC Trazodone Hcl 50 Mg Tablet 50 Mg PO HS Zoloft (Sertraline Hcl) 100 Mg Tablet 1 Tab PO DAILY Protonix (Pantoprazole Sodium) 40 Mg Granpkt.dr 40 Mg PO DAILY Metformin Hcl 500 Mg Tablet 500 Mg PO BIDWMEALS Lisinopril 20 Mg Tablet 1 Tab PO DAILY Januvia (Sitagliptin Phosphate) 50 Mg Tablet 1 Tab PO DAILY Eliquis (Apixaban) 2.5 Mg Tablet 2.5 Mg PO BID Claritin (Loratadine) 10 Mg Tablet 1 Tab PO DAILY Carvedilol 25 Mg Tablet 12.5 Mg PO BIDWMEALS Buspirone Hcl 5 Mg Tablet 1 Tab PO TID Bethanechol Chloride 25 Mg Tablet 25 Mg PO TID Atorvastatin Calcium 20 Mg Tablet 20 Mg PO HS Aspirin 81 Mg Tab.chew 1 Tab PO DAILY Allergies Allergies: Coded Allergies: Penicillins (Verified Allergy, Intermediate, 08/29/18) ROS General: No: Chills, Other (fevers) PSYCHOLOGICAL ROS: YES: Anxiety Eyes: No Blurry vision, No Double vision HEENT: No: Heacaches, Sore Throat Hematological and Lymphatic: YES: Bleeding Problems; No: Blood Clots Respiratory: No: Cough, Shortness of breath Cardiovascular: No Chest Pain, No Palpitations Gastrointestinal: Yes Other (see hpi) Genitourinary: No Dysuria, No Hematuria Musculoskeletal: Yes Pain In: (legs) Skin: No Pruritus, No Rash Physical Exam General: Cooperative, No acute distress HEENT: Atraumatic, Mucous membr. moist/pink Lungs: Clear to auscultation, Normal air movement Heart: Regular rate, Normal S1, Normal S2, No murmurs Abdomen: Soft, No tenderness Extremities: No clubbing, No cyanosis Skin: No rashes, No breakdown Neuro: Normal speech, Sensation intact Psych/Mental Status: Mental status NL, Mood NL MUSCULOSKELETAL: No deformity, No swelling Vitals VITALS Vital Signs Date Time Temp Pulse Resp B/P (MAP) Pulse Ox O2 Delivery O2 Flow Rate FiO2 08/29/18 12:14 99.7 99 16 160/67 99.7 08/29/18 12:00 Room Air 08/29/18 11:15 95 08/29/18 10:55 4 Labs Labs Laboratory Tests Test 08/29/18 04:45 White Blood Count 7.6 x10^3/uL (4.0-11.0) Red Blood Count 2.02 x10^6/uL (3.50-5.40) Hemoglobin 5.0 g/dL (12.0-15.5) Hematocrit 15.7 % (36.0-47.0) Mean Corpuscular Volume 78 fL (79-100) Mean Corpuscular Hemoglobin 25 pg (25-35) Mean Corpuscular Hemoglobin Concent 32 g/dL (31-37) Red Cell Distribution Width 14.6 % (11.5-14.5) Platelet Count 221 x10^3/uL (140-400) Neutrophils (%) (Auto) 70 % (31-73) Lymphocytes (%) (Auto) 19 % (24-48) Monocytes (%) (Auto) 9 % (0-9) Eosinophils (%) (Auto) 2 % (0-3) Basophils (%) (Auto) 1 % (0-3) Neutrophils # (Auto) 5.3 x10^3uL (1.8-7.7) Lymphocytes # (Auto) 1.4 x10^3/uL (1.0-4.8) Monocytes # (Auto) 0.7 x10^3/uL (0.0-1.1) Eosinophils # (Auto) 0.1 x10^3/uL (0.0-0.7) Basophils # (Auto) 0.1 x10^3/uL (0.0-0.2) Prothrombin Time 18.1 SEC (11.7-14.0) Prothromb Time International Ratio 1.5 (0.8-1.1) Activated Partial Thromboplast Time 28 SEC (24-38) Sodium Level 137 mmol/L (136-145) Potassium Level 4.2 mmol/L (3.5-5.1) Chloride Level 105 mmol/L (98-107) Carbon Dioxide Level 22 mmol/L (21-32) Anion Gap 10 (6-14) Blood Urea Nitrogen 26 mg/dL (7-20) Creatinine 1.5 mg/dL (0.6-1.0) Estimated GFR (Cockcroft-Gault) 33.9 BUN/Creatinine Ratio 17 (6-20) Glucose Level 236 mg/dL (70-99) Calcium Level 8.5 mg/dL (8.5-10.1) Total Bilirubin 0.2 mg/dL (0.2-1.0) Aspartate Amino Transf (AST/SGOT) 11 U/L (15-37) Alanine Aminotransferase (ALT/SGPT) 12 U/L (14-59) Alkaline Phosphatase 60 U/L (46-116) Total Protein 5.9 g/dL (6.4-8.2) Albumin 2.7 g/dL (3.4-5.0) Albumin/Globulin Ratio 0.8 (1.0-1.7) Lipase 98 U/L (73-393) Laboratory Tests Test 08/29/18 04:45 White Blood Count 7.6 x10^3/uL (4.0-11.0) Red Blood Count 2.02 x10^6/uL (3.50-5.40) Hemoglobin 5.0 g/dL (12.0-15.5) Hematocrit 15.7 % (36.0-47.0) Mean Corpuscular Volume 78 fL (79-100) Mean Corpuscular Hemoglobin 25 pg (25-35) Mean Corpuscular Hemoglobin Concent 32 g/dL (31-37) Red Cell Distribution Width 14.6 % (11.5-14.5) Platelet Count 221 x10^3/uL (140-400) Neutrophils (%) (Auto) 70 % (31-73) Lymphocytes (%) (Auto) 19 % (24-48) Monocytes (%) (Auto) 9 % (0-9) Eosinophils (%) (Auto) 2 % (0-3) Basophils (%) (Auto) 1 % (0-3) Neutrophils # (Auto) 5.3 x10^3uL (1.8-7.7) Lymphocytes # (Auto) 1.4 x10^3/uL (1.0-4.8) Monocytes # (Auto) 0.7 x10^3/uL (0.0-1.1) Eosinophils # (Auto) 0.1 x10^3/uL (0.0-0.7) Basophils # (Auto) 0.1 x10^3/uL (0.0-0.2) Prothrombin Time 18.1 SEC (11.7-14.0) Prothromb Time International Ratio 1.5 (0.8-1.1) Activated Partial Thromboplast Time 28 SEC (24-38) Sodium Level 137 mmol/L (136-145) Potassium Level 4.2 mmol/L (3.5-5.1) Chloride Level 105 mmol/L (98-107) Carbon Dioxide Level 22 mmol/L (21-32) Anion Gap 10 (6-14) Blood Urea Nitrogen 26 mg/dL (7-20) Creatinine 1.5 mg/dL (0.6-1.0) Estimated GFR (Cockcroft-Gault) 33.9 BUN/Creatinine Ratio 17 (6-20) Glucose Level 236 mg/dL (70-99) Calcium Level 8.5 mg/dL (8.5-10.1) Total Bilirubin 0.2 mg/dL (0.2-1.0) Aspartate Amino Transf (AST/SGOT) 11 U/L (15-37) Alanine Aminotransferase (ALT/SGPT) 12 U/L (14-59) Alkaline Phosphatase 60 U/L (46-116) Total Protein 5.9 g/dL (6.4-8.2) Albumin 2.7 g/dL (3.4-5.0) Albumin/Globulin Ratio 0.8 (1.0-1.7) Lipase 98 U/L (73-393) Assessment/Plan Assessment/Plan Gi bleed scope with adherent clot cardia of stomach consistent with Dieulafoy lesion No current bleeding, receiving transfusion on anticoagulants -hold, INR I.5 no surgical plans currently, IR following for possible embolization if rebleed occurs LAUREN RENAE MD 08/29/18 6279: CONSULT Assessment/Plan Assessment/Plan Pt seen and examined. Agree with Ms. Zee's note Pt denies abd pain, but has been noted to have hematemesis and hematochezia agree with plans for repeat endoscopy and/or angiography will remain available, if these are not successful Thanks for consult! KVNG ZEE APRN Aug 29, 2018 13:25 LAUREN RENAE MD Aug 29, 2018 16:58
[2018-08-29 13:51] LABS: FECAL OB PT POSITIVE (NEG)
[2018-08-29] MEDS: busPIRone 5 MG TABLET. PO SCH ×2 (14:00→21:05)
--- NOTE | 2018-08-29 14:25 | NUR ---
SS following for discharge planning. SS reviewed pt chart and received notification that pt was from [facility], ; [phone]. SS contacted [facility] [place] and was notified that pt is a LTC resident from there facility and was able to return when medically stable.
[2018-08-29] MEDS: MORPHINE SULFATE 4 MG/ML VIAL. IV PRN ×2 (15:35→18:37)
[2018-08-29] MEDS: PANTOPRAZOLE SODIUM IV DRIP 80 MG in IV NORMAL SALINE 100ML 100 ML IV SCH (17:26)
[2018-08-29] MEDS: traZODone 50 MG TABLET. PO SCH (21:04)
[2018-08-29] MEDS: ATORVASTATIN CALCIUM 20 MG TABLET PO SCH (21:04)
[2018-08-30] VITALS (16 sets, daily range): BP systolic 97–184; BP diastolic 59–109
[2018-08-30] MEDS: MORPHINE SULFATE 4 MG/ML VIAL. IV PRN ×3 (00:38→18:37)
[2018-08-30] MEDS: PANTOPRAZOLE SODIUM IV DRIP 80 MG in IV NORMAL SALINE 100ML 100 ML IV SCH ×3 (03:23→22:24)
[2018-08-30 04:53] LABS: BASO # 0.1 x10^3/uL (0.0-0.2); BASO % 1 % (0-3); EOS % 0 % (0-3); HEMATOCRIT 28.5 % (36.0-47.0); LYMPH # 1.6 x10^3/uL (1.0-4.8); LYMPH % 15 % (24-48); MEAN CORPUSCULAR HEMOGLOBIN 28 pg (25-35); MEAN CORPUSCULAR HGB CONC 35 g/dL (31-37); MEAN CORPUSCULAR VOLUME 81 fL (79-100); MONO % 9 % (0-9); NEUT # 8.1 x10^3uL (1.8-7.7); NEUT % 75 % (31-73); PLATELET COUNT 201 x10^3/uL (140-400); RED BLOOD COUNT 3.54 x10^6/uL (3.50-5.40); RED CELL DISTRIBUTION WIDTH 15.2 % (11.5-14.5); WHITE BLOOD COUNT 10.8 x10^3/uL (4.0-11.0)
[2018-08-30 05:21] LABS: ALBUMIN 3.2 g/dL (3.4-5.0); CALCIUM 9.2 mg/dL (8.5-10.1); CREATININE 1.2 mg/dL (0.6-1.0); GFR 43.9; POTASSIUM 3.7 mmol/L (3.5-5.1); TOTAL BILIRUBIN 0.7 mg/dL (0.2-1.0); TOTAL PROTEIN 6.5 g/dL (6.4-8.2)
[2018-08-30] MEDS: SERTRALINE 50 MG TABLET. PO SCH (08:52)
[2018-08-30] MEDS: busPIRone 5 MG TABLET. PO SCH ×3 (08:52→22:24)
[2018-08-30] MEDS: CARVEDILOL 6.25 MG TABLET. PO SCH (08:53)
--- NOTE | 2018-08-30 09:47 | PDOC ---
KVNG ZEE SPEAKING UNIT ASSEMBLER 08/30/18 0947: SURGICAL PROGRESS NOTE Subjective main complaint is leg pain no rectal bleeding, emesis blood tinged x 1 yesterday Vital Signs Vital Signs Date Time Temp Pulse Resp B/P (MAP) Pulse Ox O2 Delivery O2 Flow Rate FiO2 08/30/18 09:00 19 163/75 (104) 99 Room Air 08/30/18 08:53 99 08/30/18 08:00 99.1 99.1 08/30/18 00:38 4.0 I&O Intake and Output 08/30/18 07:01 Intake Total 1262 ml Output Total 1005 ml Balance 257 ml Intake IV Total 1112 ml Blood Product IV Normal Saline Flush 150 ml Output Urine Total 780 ml Stool Total 225 ml General: Alert, Cooperative, No acute distress Abdomen: Normal bowel sounds, Soft, No tenderness Labs Laboratory Tests Test 08/29/18 04:45 08/29/18 07:40 08/29/18 13:15 08/29/18 15:45 White Blood Count 7.6 x10^3/uL (4.0-11.0) Red Blood Count 2.02 x10^6/uL (3.50-5.40) Hemoglobin 5.0 g/dL (12.0-15.5) 10.0 g/dL (12.0-15.5) Hematocrit 15.7 % (36.0-47.0) Mean Corpuscular Volume 78 fL (79-100) Mean Corpuscular Hemoglobin 25 pg (25-35) Mean Corpuscular Hemoglobin Concent 32 g/dL (31-37) Red Cell Distribution Width 14.6 % (11.5-14.5) Platelet Count 221 x10^3/uL (140-400) Neutrophils (%) (Auto) 70 % (31-73) Lymphocytes (%) (Auto) 19 % (24-48) Monocytes (%) (Auto) 9 % (0-9) Eosinophils (%) (Auto) 2 % (0-3) Basophils (%) (Auto) 1 % (0-3) Neutrophils # (Auto) 5.3 x10^3uL (1.8-7.7) Lymphocytes # (Auto) 1.4 x10^3/uL (1.0-4.8) Monocytes # (Auto) 0.7 x10^3/uL (0.0-1.1) Eosinophils # (Auto) 0.1 x10^3/uL (0.0-0.7) Basophils # (Auto) 0.1 x10^3/uL (0.0-0.2) Prothrombin Time 18.1 SEC (11.7-14.0) Prothromb Time International Ratio 1.5 (0.8-1.1) Activated Partial Thromboplast Time 28 SEC (24-38) Sodium Level 137 mmol/L (136-145) Potassium Level 4.2 mmol/L (3.5-5.1) Chloride Level 105 mmol/L (98-107) Carbon Dioxide Level 22 mmol/L (21-32) Anion Gap 10 (6-14) Blood Urea Nitrogen 26 mg/dL (7-20) Creatinine 1.5 mg/dL (0.6-1.0) Estimated GFR (Cockcroft-Gault) 33.9 BUN/Creatinine Ratio 17 (6-20) Glucose Level 236 mg/dL (70-99) Calcium Level 8.5 mg/dL (8.5-10.1) Total Bilirubin 0.2 mg/dL (0.2-1.0) Aspartate Amino Transf (AST/SGOT) 11 U/L (15-37) Alanine Aminotransferase (ALT/SGPT) 12 U/L (14-59) Alkaline Phosphatase 60 U/L (46-116) Total Protein 5.9 g/dL (6.4-8.2) Albumin 2.7 g/dL (3.4-5.0) Albumin/Globulin Ratio 0.8 (1.0-1.7) Lipase 98 U/L (73-393) Nasal Screen MRSA (PCR) Negative (Negative) Stool Occult Blood Positive (NEG) Test 08/30/18 04:00 White Blood Count 10.8 x10^3/uL (4.0-11.0) Red Blood Count 3.54 x10^6/uL (3.50-5.40) Hemoglobin 10.0 g/dL (12.0-15.5) Hematocrit 28.5 % (36.0-47.0) Mean Corpuscular Volume 81 fL (79-100) Mean Corpuscular Hemoglobin 28 pg (25-35) Mean Corpuscular Hemoglobin Concent 35 g/dL (31-37) Red Cell Distribution Width 15.2 % (11.5-14.5) Platelet Count 201 x10^3/uL (140-400) Neutrophils (%) (Auto) 75 % (31-73) Lymphocytes (%) (Auto) 15 % (24-48) Monocytes (%) (Auto) 9 % (0-9) Eosinophils (%) (Auto) 0 % (0-3) Basophils (%) (Auto) 1 % (0-3) Neutrophils # (Auto) 8.1 x10^3uL (1.8-7.7) Lymphocytes # (Auto) 1.6 x10^3/uL (1.0-4.8) Monocytes # (Auto) 1.0 x10^3/uL (0.0-1.1) Eosinophils # (Auto) 0.0 x10^3/uL (0.0-0.7) Basophils # (Auto) 0.1 x10^3/uL (0.0-0.2) Sodium Level 139 mmol/L (136-145) Potassium Level 3.7 mmol/L (3.5-5.1) Chloride Level 105 mmol/L (98-107) Carbon Dioxide Level 24 mmol/L (21-32) Anion Gap 10 (6-14) Blood Urea Nitrogen 34 mg/dL (7-20) Creatinine 1.2 mg/dL (0.6-1.0) Estimated GFR (Cockcroft-Gault) 43.9 BUN/Creatinine Ratio 28 (6-20) Glucose Level 197 mg/dL (70-99) Calcium Level 9.2 mg/dL (8.5-10.1) Total Bilirubin 0.7 mg/dL (0.2-1.0) Aspartate Amino Transf (AST/SGOT) 14 U/L (15-37) Alanine Aminotransferase (ALT/SGPT) 14 U/L (14-59) Alkaline Phosphatase 58 U/L (46-116) Total Protein 6.5 g/dL (6.4-8.2) Albumin 3.2 g/dL (3.4-5.0) Albumin/Globulin Ratio 1.0 (1.0-1.7) Laboratory Tests Test 08/29/18 13:15 08/29/18 15:45 08/30/18 04:00 Stool Occult Blood Positive (NEG) Hemoglobin 10.0 g/dL (12.0-15.5) 10.0 g/dL (12.0-15.5) White Blood Count 10.8 x10^3/uL (4.0-11.0) Red Blood Count 3.54 x10^6/uL (3.50-5.40) Hematocrit 28.5 % (36.0-47.0) Mean Corpuscular Volume 81 fL (79-100) Mean Corpuscular Hemoglobin 28 pg (25-35) Mean Corpuscular Hemoglobin Concent 35 g/dL (31-37) Red Cell Distribution Width 15.2 % (11.5-14.5) Platelet Count 201 x10^3/uL (140-400) Neutrophils (%) (Auto) 75 % (31-73) Lymphocytes (%) (Auto) 15 % (24-48) Monocytes (%) (Auto) 9 % (0-9) Eosinophils (%) (Auto) 0 % (0-3) Basophils (%) (Auto) 1 % (0-3) Neutrophils # (Auto) 8.1 x10^3uL (1.8-7.7) Lymphocytes # (Auto) 1.6 x10^3/uL (1.0-4.8) Monocytes # (Auto) 1.0 x10^3/uL (0.0-1.1) Eosinophils # (Auto) 0.0 x10^3/uL (0.0-0.7) Basophils # (Auto) 0.1 x10^3/uL (0.0-0.2) Sodium Level 139 mmol/L (136-145) Potassium Level 3.7 mmol/L (3.5-5.1) Chloride Level 105 mmol/L (98-107) Carbon Dioxide Level 24 mmol/L (21-32) Anion Gap 10 (6-14) Blood Urea Nitrogen 34 mg/dL (7-20) Creatinine 1.2 mg/dL (0.6-1.0) Estimated GFR (Cockcroft-Gault) 43.9 BUN/Creatinine Ratio 28 (6-20) Glucose Level 197 mg/dL (70-99) Calcium Level 9.2 mg/dL (8.5-10.1) Total Bilirubin 0.7 mg/dL (0.2-1.0) Aspartate Amino Transf (AST/SGOT) 14 U/L (15-37) Alanine Aminotransferase (ALT/SGPT) 14 U/L (14-59) Alkaline Phosphatase 58 U/L (46-116) Total Protein 6.5 g/dL (6.4-8.2) Albumin 3.2 g/dL (3.4-5.0) Albumin/Globulin Ratio 1.0 (1.0-1.7) Problem List Problems Medical Problems: (1) Upper GI bleeding Status: Acute Assessment/Plan hgb stable supportive measures LAUREN RENAE MD 08/30/18 1410: SURGICAL PROGRESS NOTE Assessment/Plan Pt seen and examined. Agree with MsDejah Zee's note Pt without new c/o abd soft, ND, NTTP labs vitals stable cont supportive care KVNG ZEE APRN Aug 30, 2018 09:47 LAUREN RENAE MD Aug 30, 2018 14:10
[2018-08-30] MEDS: IV NORMAL SALINE 1000ML BAG 1,000 ML IV SCH ×2 (10:26→22:25)
--- NOTE | 2018-08-30 11:59 | PDOC ---
PROGRESS NOTES Chief Complaint Chief Complaint hematemesis 2/2 Dielufoy lesion with blood clots anemia 2/2 GIB, upper. s/p 3u PRBC dm2 htn hld h/o CVA with rt leg weakness on eliquis and asa GERD anxiety depression mild malnutrition benign esophageal stricutre s/p mild dilation in EGD WARD, vasomotor plan: icu care 3 u PRBC , repeat hb at 4pm and tmr. Fu with GI, EGD found stomach dielufuoy lesion with clots npo, ivf NS 75cc/h, protonix drip as per gi if ok with gi, will start clear liquid, change protonix to iv bid. talked to ICU nurse hold asa, eliquis, lisinopril. increase coreg back to 12.5 mg bid cont some other home meds if ok with gi PTOT FC ok transfer out of ICU if ok with gi History of Present Illness History of Present Illness ROS: no fever, chills, sob or chest pain came for hematemesis EGD showed dielufoy lesion with blood clots wo active bleeding 08/30: yesterday has one time vomiting with blood streaks, Hb stable after 3u PRBC. has one time melena. c/o rt leg pain, chronic post stroke, high BP, tachycardia. Vitals Vitals Vital Signs Date Time Temp Pulse Resp B/P (MAP) Pulse Ox O2 Delivery O2 Flow Rate FiO2 08/30/18 11:00 88 21 164/65 (98) 99 Room Air 08/30/18 08:00 99.1 99.1 08/30/18 00:38 4.0 Physical Exam Physical Exam bad hearing rt leg pain General: Alert, Oriented X3, Cooperative, No acute distress Heart: Regular rate, Normal S1, Normal S2, No murmurs Lungs: Clear Abdomen: Normal bowel sounds, Soft, No tenderness Extremities: No clubbing, No cyanosis Skin: No rashes, No breakdown Labs LABS Laboratory Tests Test 08/29/18 13:15 08/29/18 15:45 08/30/18 04:00 Stool Occult Blood Positive (NEG) Hemoglobin 10.0 g/dL (12.0-15.5) 10.0 g/dL (12.0-15.5) White Blood Count 10.8 x10^3/uL (4.0-11.0) Red Blood Count 3.54 x10^6/uL (3.50-5.40) Hematocrit 28.5 % (36.0-47.0) Mean Corpuscular Volume 81 fL (79-100) Mean Corpuscular Hemoglobin 28 pg (25-35) Mean Corpuscular Hemoglobin Concent 35 g/dL (31-37) Red Cell Distribution Width 15.2 % (11.5-14.5) Platelet Count 201 x10^3/uL (140-400) Neutrophils (%) (Auto) 75 % (31-73) Lymphocytes (%) (Auto) 15 % (24-48) Monocytes (%) (Auto) 9 % (0-9) Eosinophils (%) (Auto) 0 % (0-3) Basophils (%) (Auto) 1 % (0-3) Neutrophils # (Auto) 8.1 x10^3uL (1.8-7.7) Lymphocytes # (Auto) 1.6 x10^3/uL (1.0-4.8) Monocytes # (Auto) 1.0 x10^3/uL (0.0-1.1) Eosinophils # (Auto) 0.0 x10^3/uL (0.0-0.7) Basophils # (Auto) 0.1 x10^3/uL (0.0-0.2) Sodium Level 139 mmol/L (136-145) Potassium Level 3.7 mmol/L (3.5-5.1) Chloride Level 105 mmol/L (98-107) Carbon Dioxide Level 24 mmol/L (21-32) Anion Gap 10 (6-14) Blood Urea Nitrogen 34 mg/dL (7-20) Creatinine 1.2 mg/dL (0.6-1.0) Estimated GFR (Cockcroft-Gault) 43.9 BUN/Creatinine Ratio 28 (6-20) Glucose Level 197 mg/dL (70-99) Calcium Level 9.2 mg/dL (8.5-10.1) Total Bilirubin 0.7 mg/dL (0.2-1.0) Aspartate Amino Transf (AST/SGOT) 14 U/L (15-37) Alanine Aminotransferase (ALT/SGPT) 14 U/L (14-59) Alkaline Phosphatase 58 U/L (46-116) Total Protein 6.5 g/dL (6.4-8.2) Albumin 3.2 g/dL (3.4-5.0) Albumin/Globulin Ratio 1.0 (1.0-1.7) Assessment and Plan Assessmemt and Plan Problems Medical Problems: (1) Upper GI bleeding Status: Acute Comment Review of Relevant I have reviewed the following items pee (where applicable) has been applied. Labs Laboratory Tests Test 08/29/18 04:45 08/29/18 07:40 08/29/18 13:15 08/29/18 15:45 White Blood Count 7.6 x10^3/uL (4.0-11.0) Red Blood Count 2.02 x10^6/uL (3.50-5.40) Hemoglobin 5.0 g/dL (12.0-15.5) 10.0 g/dL (12.0-15.5) Hematocrit 15.7 % (36.0-47.0) Mean Corpuscular Volume 78 fL (79-100) Mean Corpuscular Hemoglobin 25 pg (25-35) Mean Corpuscular Hemoglobin Concent 32 g/dL (31-37) Red Cell Distribution Width 14.6 % (11.5-14.5) Platelet Count 221 x10^3/uL (140-400) Neutrophils (%) (Auto) 70 % (31-73) Lymphocytes (%) (Auto) 19 % (24-48) Monocytes (%) (Auto) 9 % (0-9) Eosinophils (%) (Auto) 2 % (0-3) Basophils (%) (Auto) 1 % (0-3) Neutrophils # (Auto) 5.3 x10^3uL (1.8-7.7) Lymphocytes # (Auto) 1.4 x10^3/uL (1.0-4.8) Monocytes # (Auto) 0.7 x10^3/uL (0.0-1.1) Eosinophils # (Auto) 0.1 x10^3/uL (0.0-0.7) Basophils # (Auto) 0.1 x10^3/uL (0.0-0.2) Prothrombin Time 18.1 SEC (11.7-14.0) Prothromb Time International Ratio 1.5 (0.8-1.1) Activated Partial Thromboplast Time 28 SEC (24-38) Sodium Level 137 mmol/L (136-145) Potassium Level 4.2 mmol/L (3.5-5.1) Chloride Level 105 mmol/L (98-107) Carbon Dioxide Level 22 mmol/L (21-32) Anion Gap 10 (6-14) Blood Urea Nitrogen 26 mg/dL (7-20) Creatinine 1.5 mg/dL (0.6-1.0) Estimated GFR (Cockcroft-Gault) 33.9 BUN/Creatinine Ratio 17 (6-20) Glucose Level 236 mg/dL (70-99) Calcium Level 8.5 mg/dL (8.5-10.1) Total Bilirubin 0.2 mg/dL (0.2-1.0) Aspartate Amino Transf (AST/SGOT) 11 U/L (15-37) Alanine Aminotransferase (ALT/SGPT) 12 U/L (14-59) Alkaline Phosphatase 60 U/L (46-116) Total Protein 5.9 g/dL (6.4-8.2) Albumin 2.7 g/dL (3.4-5.0) Albumin/Globulin Ratio 0.8 (1.0-1.7) Lipase 98 U/L (73-393) Nasal Screen MRSA (PCR) Negative (Negative) Stool Occult Blood Positive (NEG) Test 08/30/18 04:00 White Blood Count 10.8 x10^3/uL (4.0-11.0) Red Blood Count 3.54 x10^6/uL (3.50-5.40) Hemoglobin 10.0 g/dL (12.0-15.5) Hematocrit 28.5 % (36.0-47.0) Mean Corpuscular Volume 81 fL (79-100) Mean Corpuscular Hemoglobin 28 pg (25-35) Mean Corpuscular Hemoglobin Concent 35 g/dL (31-37) Red Cell Distribution Width 15.2 % (11.5-14.5) Platelet Count 201 x10^3/uL (140-400) Neutrophils (%) (Auto) 75 % (31-73) Lymphocytes (%) (Auto) 15 % (24-48) Monocytes (%) (Auto) 9 % (0-9) Eosinophils (%) (Auto) 0 % (0-3) Basophils (%) (Auto) 1 % (0-3) Neutrophils # (Auto) 8.1 x10^3uL (1.8-7.7) Lymphocytes # (Auto) 1.6 x10^3/uL (1.0-4.8) Monocytes # (Auto) 1.0 x10^3/uL (0.0-1.1) Eosinophils # (Auto) 0.0 x10^3/uL (0.0-0.7) Basophils # (Auto) 0.1 x10^3/uL (0.0-0.2) Sodium Level 139 mmol/L (136-145) Potassium Level 3.7 mmol/L (3.5-5.1) Chloride Level 105 mmol/L (98-107) Carbon Dioxide Level 24 mmol/L (21-32) Anion Gap 10 (6-14) Blood Urea Nitrogen 34 mg/dL (7-20) Creatinine 1.2 mg/dL (0.6-1.0) Estimated GFR (Cockcroft-Gault) 43.9 BUN/Creatinine Ratio 28 (6-20) Glucose Level 197 mg/dL (70-99) Calcium Level 9.2 mg/dL (8.5-10.1) Total Bilirubin 0.7 mg/dL (0.2-1.0) Aspartate Amino Transf (AST/SGOT) 14 U/L (15-37) Alanine Aminotransferase (ALT/SGPT) 14 U/L (14-59) Alkaline Phosphatase 58 U/L (46-116) Total Protein 6.5 g/dL (6.4-8.2) Albumin 3.2 g/dL (3.4-5.0) Albumin/Globulin Ratio 1.0 (1.0-1.7) Laboratory Tests Test 08/29/18 13:15 08/29/18 15:45 08/30/18 04:00 Stool Occult Blood Positive (NEG) Hemoglobin 10.0 g/dL (12.0-15.5) 10.0 g/dL (12.0-15.5) White Blood Count 10.8 x10^3/uL (4.0-11.0) Red Blood Count 3.54 x10^6/uL (3.50-5.40) Hematocrit 28.5 % (36.0-47.0) Mean Corpuscular Volume 81 fL (79-100) Mean Corpuscular Hemoglobin 28 pg (25-35) Mean Corpuscular Hemoglobin Concent 35 g/dL (31-37) Red Cell Distribution Width 15.2 % (11.5-14.5) Platelet Count 201 x10^3/uL (140-400) Neutrophils (%) (Auto) 75 % (31-73) Lymphocytes (%) (Auto) 15 % (24-48) Monocytes (%) (Auto) 9 % (0-9) Eosinophils (%) (Auto) 0 % (0-3) Basophils (%) (Auto) 1 % (0-3) Neutrophils # (Auto) 8.1 x10^3uL (1.8-7.7) Lymphocytes # (Auto) 1.6 x10^3/uL (1.0-4.8) Monocytes # (Auto) 1.0 x10^3/uL (0.0-1.1) Eosinophils # (Auto) 0.0 x10^3/uL (0.0-0.7) Basophils # (Auto) 0.1 x10^3/uL (0.0-0.2) Sodium Level 139 mmol/L (136-145) Potassium Level 3.7 mmol/L (3.5-5.1) Chloride Level 105 mmol/L (98-107) Carbon Dioxide Level 24 mmol/L (21-32) Anion Gap 10 (6-14) Blood Urea Nitrogen 34 mg/dL (7-20) Creatinine 1.2 mg/dL (0.6-1.0) Estimated GFR (Cockcroft-Gault) 43.9 BUN/Creatinine Ratio 28 (6-20) Glucose Level 197 mg/dL (70-99) Calcium Level 9.2 mg/dL (8.5-10.1) Total Bilirubin 0.7 mg/dL (0.2-1.0) Aspartate Amino Transf (AST/SGOT) 14 U/L (15-37) Alanine Aminotransferase (ALT/SGPT) 14 U/L (14-59) Alkaline Phosphatase 58 U/L (46-116) Total Protein 6.5 g/dL (6.4-8.2) Albumin 3.2 g/dL (3.4-5.0) Albumin/Globulin Ratio 1.0 (1.0-1.7) Medications Current Medications Sodium Chloride 500 ml @ 500 mls/hr 1X ONCE IV Last administered on at 04:48; Start 08/29/18 at 05:00; Stop 08/29/18 at 05:59; Status DC Pantoprazole Sodium 80 mg/ Sodium Chloride 100 ml @ 10 mls/hr 1X ONCE IV Last administered on 08/29/18at 05:40; Start 08/29/18 at 06:00; Stop 08/29/18 at 15:59; Status DC Pantoprazole Sodium (PROTONIX VIAL for IV PUSH) 80 mg 1X ONCE IVP Last administered on 08/29/18at 05:42; Start 08/29/18 at 06:00; Stop 08/29/18 at 06:01 ; Status DC Ondansetron HCl (Zofran) 4 mg PRN Q8HRS PRN IV NAUSEA/VOMITING 1ST CHOICE Last administered on 08/29/18at 15:38; Start 08/29/18 at 06:15; Stop 08/30/18 at 06:14 ; Status DC Sodium Chloride 1,000 ml @ 125 mls/hr Q8H IV Last administered on 08/29/18at 08 :13; Start 08/29/18 at 06:30; Stop 08/29/18 at 11:26; Status DC Ondansetron HCl (Zofran) 4 mg STK-MED ONCE .ROUTE ; Start 08/29/18 at 00:12; Stop 08/29/18 at 08:18; Status DC Sodium Chloride (NORMAL SALINE FLUSH for STERILE FIELD) 10 ml STK-MED ONCE .ROUTE ; Start 08/29/18 at 00:12; Stop 08/29/18 at 08:18; Status DC Hydromorphone HCl (Dilaudid) 0.5 mg 1X ONCE IV Last administered on 08/29/18at 09:19; Start 08/29/18 at 09:15; Stop 08/29/18 at 09:16; Status DC Midazolam HCl (Versed) 2 mg PRN 1X PRN IV PRIOR TO PROCEDURE; Start 08/29/18 at 10:15; Stop 08/29/18 at 18:00; Status DC Fentanyl Citrate (Fentanyl 2ml Vial) 25 mcg PRN Q5MIN PRN IV X 2 DOSES FOR PAIN ; Start 08/29/18 at 10:15; Stop 08/29/18 at 18:00; Status DC Fentanyl Citrate (Fentanyl 2ml Vial) 50 mcg PRN Q5MIN PRN IV X 2 DOSES FOR PAIN ; Start 08/29/18 at 10:15; Stop 08/29/18 at 18:00; Status DC Ringer's Solution 1,000 ml @ 125 mls/hr Q8H IV ; Start 08/29/18 at 10:00; Stop 08/29/18 at 18:00; Status DC Lidocaine HCl (Xylocaine-Mpf 1% 2ml Vial) 2 ml 1X PRN PRN ID IV START; Start at 10:15; Stop 08/29/18 at 18:00; Status DC Propofol 20 ml @ As Directed STK-MED ONCE IV ; Start 08/29/18 at 10:21; Stop at 10:22; Status DC Propofol 20 ml @ As Directed STK-MED ONCE IV ; Start 08/29/18 at 10:45; Stop at 10:47; Status DC Atorvastatin Calcium (Lipitor) 20 mg HS PO Last administered on 08/29/18at 21:04 ; Start 08/29/18 at 21:00 Buspirone HCl (Buspar) 5 mg TID PO Last administered on 08/30/18at 08:52; Start 08/29/18 at 14:00 Lisinopril (Prinivil) 20 mg DAILY PO ; Start 08/29/18 at 12:00; Stop 08/29/18 at 12:00; Status DC Trazodone HCl (Desyrel) 50 mg HS PO Last administered on 08/29/18at 21:04; Start 08/29/18 at 21:00 Carvedilol (Coreg) 12.5 mg BIDWMEALS PO ; Start 08/29/18 at 12:00; Stop at 12:00; Status DC Sertraline HCl (Zoloft) 100 mg DAILY PO Last administered on 08/30/18at 08:52; Start 08/29/18 at 12:00 Carvedilol (Coreg) 6.25 mg BIDWMEALS PO Last administered on 08/30/18at 08:53; Start 08/29/18 at 12:00 Acetaminophen (Tylenol) 650 mg PRN Q6HRS PRN PO FEVER; Start 08/29/18 at 11:30 Ondansetron HCl (Zofran) 4 mg PRN Q6HRS PRN IV NAUSEA/VOMITING; Start 08/29/18 at 11:30 Morphine Sulfate (Morphine Sulfate) 2 mg PRN Q2HR PRN IV MODERATE TO SEVERE PAIN Last administered on 08/30/18at 10:19; Start 08/29/18 at 11:30 Tramadol HCl (Ultram) 50 mg PRN Q6HRS PRN PO MILD TO MODERATE PAIN; Start 08/29 at 11:30 Hydralazine HCl (Apresoline Inj) 10 mg PRN Q4HRS PRN IVP ELEVATED BP, SEE COMMENTS; Start 08/29/18 at 11:30 Docusate Sodium (Colace) 100 mg PRN DAILY PRN PO CONSTIPATION; Start 08/29/18 at 11:30 Sodium Chloride 1,000 ml @ 75 mls/hr [id number] IV Last administered on at 10:26; Start 08/29/18 at 11:30 Iohexol (Omnipaque 300 Mg/ml) 100 ml STK-MED ONCE .ROUTE ; Start 08/29/18 at 11: 28; Stop 08/29/18 at 11:30; Status DC Heparin Sodium/ Sodium Chloride 1,500 ml @ As Directed STK-MED ONCE .ROUTE ; Start 08/29/18 at 11:28; Stop 08/29/18 at 11:30; Status DC Lidocaine/Sodium Bicarbonate (Buffered Lidocaine 1%) 3 ml STK-MED ONCE .ROUTE ; Start 08/29/18 at 11:29; Stop 08/29/18 at 11:31; Status DC Midazolam HCl (Versed) 2 mg STK-MED ONCE .ROUTE ; Start 08/29/18 at 12:19; Stop 08/29/18 at 12:21; Status DC Fentanyl Citrate (Fentanyl 2ml Vial) 100 mcg STK-MED ONCE .ROUTE ; Start at 12:19; Stop 08/29/18 at 12:21; Status DC Pantoprazole Sodium 80 mg/ Sodium Chloride 100 ml @ 10 mls/hr Q10H IV Last administered on 08/30/18at 03:23; Start 08/29/18 at 17:00 Active Scripts Active Reported Vitamin D (Cholecalciferol (Vitamin D3)) 2,000 Unit Capsule 1 Cap PO DAILY Trulicity (Dulaglutide) 1.5 Mg/0.5 Ml Pen.injctr 1.5 Mg SQ WEEKLYAC Trazodone Hcl 50 Mg Tablet 50 Mg PO HS Zoloft (Sertraline Hcl) 100 Mg Tablet 1 Tab PO DAILY Protonix (Pantoprazole Sodium) 40 Mg Granpkt.dr 40 Mg PO DAILY Metformin Hcl 500 Mg Tablet 500 Mg PO BIDWMEALS Lisinopril 20 Mg Tablet 1 Tab PO DAILY Januvia (Sitagliptin Phosphate) 50 Mg Tablet 1 Tab PO DAILY Eliquis (Apixaban) 2.5 Mg Tablet 2.5 Mg PO BID Claritin (Loratadine) 10 Mg Tablet 1 Tab PO DAILY Carvedilol 25 Mg Tablet 12.5 Mg PO BIDWMEALS Buspirone Hcl 5 Mg Tablet 1 Tab PO TID Bethanechol Chloride 25 Mg Tablet 25 Mg PO TID Atorvastatin Calcium 20 Mg Tablet 20 Mg PO HS Aspirin 81 Mg Tab.chew 1 Tab PO DAILY Vitals/I & O Vital Sign - Last 24 Hours 08/29/18 08/29/18 08/29/18 08/29/18 12:00 12:00 12:14 12:30 Temp 99.7 99.7 99.5 99.7 99.7 99.5 Pulse 100 99 98 Resp 16 18 B/P (MAP) 146/81 (102) 160/67 160/67 Pulse Ox 100 O2 Delivery Room Air Room Air 08/29/18 08/29/18 08/29/18 08/29/18 12:45 13:00 13:00 14:00 Temp 99.7 99.5 99.7 99.7 99.7 99.5 99.7 99.7 Pulse 100 100 100 102 Resp 17 14 18 B/P (MAP) 140/81 168/84 (112) 168/84 164/69 Pulse Ox 99 O2 Delivery Room Air 08/29/18 08/29/18 08/29/18 08/29/18 14:00 15:00 15:00 15:35 Temp 99.7 99.7 99.7 99.7 99.7 99.7 Pulse 102 106 Resp 17 25 B/P (MAP) 164/69 (100) 163/74 163/74 (103) Pulse Ox 97 99 O2 Delivery Room Air Room Air 08/29/18 08/29/18 08/29/18 08/29/18 16:00 16:00 17:00 18:00 Temp 99.7 99.7 Pulse 116 111 Resp 28 17 B/P (MAP) 167/67 (100) 168/72 (104) 162/74 (103) Pulse Ox 99 97 O2 Delivery Room Air Room Air Room Air 08/29/18 08/29/18 08/29/18 08/29/18 18:37 19:00 19:07 20:00 Temp 98.9 98.9 Pulse 114 115 Resp 13 17 17 B/P (MAP) 170/71 (104) 178/98 (124) Pulse Ox 97 95 98 O2 Delivery Room Air Room Air Room Air O2 Flow Rate 4.0 08/29/18 08/29/18 08/29/18 08/29/18 20:18 21:00 22:00 23:00 Pulse 120 110 112 Resp 17 17 14 B/P (MAP) 151/86 (107) 178/70 (106) 190/92 (124) Pulse Ox 96 98 100 O2 Delivery Room Air Room Air Room Air Room Air 08/29/18 08/29/18 08/30/18 08/30/18 23:59 23:59 00:38 01:00 Temp 99.0 99.0 Pulse 113 107 Resp 14 16 14 B/P (MAP) 161/97 (118) 182/82 (115) Pulse Ox 100 100 100 O2 Delivery Room Air Room Air Room Air Room Air O2 Flow Rate 4.0 08/30/18 08/30/18 08/30/18 08/30/18 02:00 03:00 04:00 04:00 Temp 98.6 98.6 Pulse 105 102 101 Resp 16 16 16 B/P (MAP) 140/109 (119) 173/80 (111) 131/63 (85) Pulse Ox 100 99 99 O2 Delivery Room Air Room Air Room Air Room Air 08/30/18 08/30/18 08/30/18 08/30/18 05:00 06:00 07:00 08:00 Temp 99.1 99.1 Pulse 102 89 86 Resp 16 14 14 15 B/P (MAP) 184/79 (114) 123/62 (82) 129/59 (82) 145/71 (95) Pulse Ox 99 98 98 99 O2 Delivery Room Air Room Air Room Air Room Air 08/30/18 08/30/18 08/30/18 08/30/18 08:00 08:53 09:00 10:00 Pulse 99 89 Resp 19 18 B/P (MAP) 163/75 163/75 (104) 126/68 (87) Pulse Ox 99 99 O2 Delivery Room Air Room Air Room Air 08/30/18 08/30/18 08/30/18 10:19 11:00 11:00 Pulse 88 Resp 16 20 21 B/P (MAP) 164/65 (98) Pulse Ox 100 97 99 O2 Delivery Room Air Room Air Room Air Intake and Output 08/29/18 08/29/18 08/30/18 15:01 23:01 07:01 Intake Total 150 ml 100 ml 1012 ml Output Total 625 ml 375 ml 5 ml Balance -475 ml -275 ml 1007 ml BART MORROW MD Aug 30, 2018 11:59
--- NOTE | 2018-08-30 15:37 | PDOC ---
Subjective: Subjective: No further hematemesis. No BM today. Pt denies pain. 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 Plan serial blood counts ppi therapy IR/surgical consult for further therapy possible embolization Objective: Vital Signs: Vital Signs Date Time Temp Pulse Resp B/P (MAP) Pulse Ox O2 Delivery O2 Flow Rate FiO2 08/30/18 13:00 89 17 118/62 (80) 96 Room Air 08/30/18 12:00 99.0 99.0 08/30/18 00:38 4.0 Labs: Laboratory Tests Test 08/29/18 15:45 08/30/18 04:00 Hemoglobin 10.0 g/dL (12.0-15.5) 10.0 g/dL (12.0-15.5) White Blood Count 10.8 x10^3/uL (4.0-11.0) Red Blood Count 3.54 x10^6/uL (3.50-5.40) Hematocrit 28.5 % (36.0-47.0) Mean Corpuscular Volume 81 fL (79-100) Mean Corpuscular Hemoglobin 28 pg (25-35) Mean Corpuscular Hemoglobin Concent 35 g/dL (31-37) Red Cell Distribution Width 15.2 % (11.5-14.5) Platelet Count 201 x10^3/uL (140-400) Neutrophils (%) (Auto) 75 % (31-73) Lymphocytes (%) (Auto) 15 % (24-48) Monocytes (%) (Auto) 9 % (0-9) Eosinophils (%) (Auto) 0 % (0-3) Basophils (%) (Auto) 1 % (0-3) Neutrophils # (Auto) 8.1 x10^3uL (1.8-7.7) Lymphocytes # (Auto) 1.6 x10^3/uL (1.0-4.8) Monocytes # (Auto) 1.0 x10^3/uL (0.0-1.1) Eosinophils # (Auto) 0.0 x10^3/uL (0.0-0.7) Basophils # (Auto) 0.1 x10^3/uL (0.0-0.2) Sodium Level 139 mmol/L (136-145) Potassium Level 3.7 mmol/L (3.5-5.1) Chloride Level 105 mmol/L (98-107) Carbon Dioxide Level 24 mmol/L (21-32) Anion Gap 10 (6-14) Blood Urea Nitrogen 34 mg/dL (7-20) Creatinine 1.2 mg/dL (0.6-1.0) Estimated GFR (Cockcroft-Gault) 43.9 BUN/Creatinine Ratio 28 (6-20) Glucose Level 197 mg/dL (70-99) Calcium Level 9.2 mg/dL (8.5-10.1) Total Bilirubin 0.7 mg/dL (0.2-1.0) Aspartate Amino Transf (AST/SGOT) 14 U/L (15-37) Alanine Aminotransferase (ALT/SGPT) 14 U/L (14-59) Alkaline Phosphatase 58 U/L (46-116) Total Protein 6.5 g/dL (6.4-8.2) Albumin 3.2 g/dL (3.4-5.0) Albumin/Globulin Ratio 1.0 (1.0-1.7) Physical Exam: Physical Exam: PE: GEN: NAD HEENT: Atraumatic, PERRL LUNGS: clear anteriorly, NC HEART: RRR ABD: NABS, S/ND/NT EXTREMITY: No edema SKIN: No rashes, no jaundice NEURO/PSYCH: A & O 3, anxious Assessment & Plan: Assessment : A/P: A/P: Hematemesis - s/p EGD with 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 Hgb stable after PRBCs H/o CVA on Eliquis and ASA Occasional heartburn CRC screen - unclear S/p cholecystectomy Chronic pain Plan: Start clear liquid diet Monitor Hgb ADAT Cont PPI MADY STEPHEN MD Aug 30, 2018 15:37
[2018-08-30 17:08] LABS: BILIRUBIN,URINE NEGATIVE (NEG); CLARITY,URINE CLEAR; COLOR,URINE YELLOW; NITRITE,URINE NEGATIVE (NEG); PROTEIN,URINE >=300 mg/dL (NEG-TRACE); UROBILINOGEN,URINE 0.2 mg/dL (0.2 mg/dL)
[2018-08-30 17:14] LABS: BACTERIA,URINE MANY /HPF (0-FEW); RBC,URINE >40 /HPF (0-2); WBC,URINE >40 /HPF (0-4)
[2018-08-30] MEDS: CARVEDILOL 12.5 MG TABLET. PO SCH (18:37)
--- NOTE | 2018-08-30 19:30 | NUR ---
This nurse received report via telephone from ICU. Patient transferred to floor around 1929. Patient stable at this time, IV fluids continued, no complaints of pain at this time. Will continue to monitor.
[2018-08-30] MEDS: traZODone 50 MG TABLET. PO SCH (22:24)
[2018-08-30] MEDS: ATORVASTATIN CALCIUM 20 MG TABLET PO SCH (22:24)
[2018-08-31] MEDS: traMADol 50 MG TABLET PO PRN ×3 (01:17→14:53)
[2018-08-31 03:40] VITALS: BP 104/68
[2018-08-31 07:00] VITALS: BP 134/77
[2018-08-31 08:16] LABS: BASO # 0.1 x10^3/uL (0.0-0.2); BASO % 1 % (0-3); EOS # 0.2 x10^3/uL (0.0-0.7); EOS % 2 % (0-3); HEMATOCRIT 26.6 % (36.0-47.0); HEMOGLOBIN 9.3 g/dL (12.0-15.5); LYMPH # 1.7 x10^3/uL (1.0-4.8); LYMPH % 18 % (24-48); MEAN CORPUSCULAR HEMOGLOBIN 29 pg (25-35); MEAN CORPUSCULAR HGB CONC 35 g/dL (31-37); MEAN CORPUSCULAR VOLUME 82 fL (79-100); MONO % 10 % (0-9); NEUT # 6.6 x10^3uL (1.8-7.7); NEUT % 69 % (31-73); PLATELET COUNT 195 x10^3/uL (140-400); RED BLOOD COUNT 3.27 x10^6/uL (3.50-5.40); RED CELL DISTRIBUTION WIDTH 15.8 % (11.5-14.5); WHITE BLOOD COUNT 9.5 x10^3/uL (4.0-11.0)
[2018-08-31] MEDS: CARVEDILOL 12.5 MG TABLET. PO SCH ×2 (08:30→17:58)
[2018-08-31] MEDS: busPIRone 5 MG TABLET. PO SCH ×3 (08:30→20:25)
[2018-08-31] MEDS: SERTRALINE 50 MG TABLET. PO SCH (08:30)
[2018-08-31 08:39] LABS: CALCIUM 8.8 mg/dL (8.5-10.1); CREATININE 1.3 mg/dL (0.6-1.0); POTASSIUM 3.9 mmol/L (3.5-5.1)
--- NOTE | 2018-08-31 09:39 | PDOC ---
KVNG ZEE MASS SPECTROSCOPIST 08/31/18 0939: SURGICAL PROGRESS NOTE Subjective leg pain no n/v tolerating liquids Vital Signs Vital Signs Date Time Temp Pulse Resp B/P (MAP) Pulse Ox O2 Delivery O2 Flow Rate FiO2 08/31/18 08:30 94 134/77 08/31/18 07:00 98.0 18 99 Room Air 98.0 I&O Intake and Output 08/31/18 07:01 Intake Total 2057.12 ml Output Total 500 ml Balance 1557.12 ml Intake Oral 100 ml IV Total 1957.12 ml Output Urine Total 500 ml # Voids 5 Abdomen: Soft, No tenderness Labs Laboratory Tests Test 08/29/18 13:15 08/29/18 15:45 08/30/18 04:00 08/30/18 15:45 Stool Occult Blood Positive (NEG) Hemoglobin 10.0 g/dL (12.0-15.5) 10.0 g/dL (12.0-15.5) White Blood Count 10.8 x10^3/uL (4.0-11.0) Red Blood Count 3.54 x10^6/uL (3.50-5.40) Hematocrit 28.5 % (36.0-47.0) Mean Corpuscular Volume 81 fL (79-100) Mean Corpuscular Hemoglobin 28 pg (25-35) Mean Corpuscular Hemoglobin Concent 35 g/dL (31-37) Red Cell Distribution Width 15.2 % (11.5-14.5) Platelet Count 201 x10^3/uL (140-400) Neutrophils (%) (Auto) 75 % (31-73) Lymphocytes (%) (Auto) 15 % (24-48) Monocytes (%) (Auto) 9 % (0-9) Eosinophils (%) (Auto) 0 % (0-3) Basophils (%) (Auto) 1 % (0-3) Neutrophils # (Auto) 8.1 x10^3uL (1.8-7.7) Lymphocytes # (Auto) 1.6 x10^3/uL (1.0-4.8) Monocytes # (Auto) 1.0 x10^3/uL (0.0-1.1) Eosinophils # (Auto) 0.0 x10^3/uL (0.0-0.7) Basophils # (Auto) 0.1 x10^3/uL (0.0-0.2) Sodium Level 139 mmol/L (136-145) Potassium Level 3.7 mmol/L (3.5-5.1) Chloride Level 105 mmol/L (98-107) Carbon Dioxide Level 24 mmol/L (21-32) Anion Gap 10 (6-14) Blood Urea Nitrogen 34 mg/dL (7-20) Creatinine 1.2 mg/dL (0.6-1.0) Estimated GFR (Cockcroft-Gault) 43.9 BUN/Creatinine Ratio 28 (6-20) Glucose Level 197 mg/dL (70-99) Calcium Level 9.2 mg/dL (8.5-10.1) Total Bilirubin 0.7 mg/dL (0.2-1.0) Aspartate Amino Transf (AST/SGOT) 14 U/L (15-37) Alanine Aminotransferase (ALT/SGPT) 14 U/L (14-59) Alkaline Phosphatase 58 U/L (46-116) Total Protein 6.5 g/dL (6.4-8.2) Albumin 3.2 g/dL (3.4-5.0) Albumin/Globulin Ratio 1.0 (1.0-1.7) Urine Collection Type Unknown Urine Color Yellow Urine Clarity Clear Urine pH 6.0 Urine Specific [place] 1.015 Urine Protein >=300 mg/dL (NEG-TRACE) Urine Glucose (UA) Negative mg/dL (NEG) Urine Ketones (Stick) Negative mg/dL (NEG) Urine Blood Large (NEG) Urine Nitrite Negative (NEG) Urine Bilirubin Negative (NEG) Urine Urobilinogen Dipstick 0.2 mg/dL (0.2 mg/dL) Urine Leukocyte Esterase Small (NEG) Urine RBC >40 /HPF (0-2) Urine WBC >40 /HPF (0-4) Urine Bacteria Many /HPF (0-FEW) Test 08/31/18 07:40 White Blood Count 9.5 x10^3/uL (4.0-11.0) Red Blood Count 3.27 x10^6/uL (3.50-5.40) Hemoglobin 9.3 g/dL (12.0-15.5) Hematocrit 26.6 % (36.0-47.0) Mean Corpuscular Volume 82 fL (79-100) Mean Corpuscular Hemoglobin 29 pg (25-35) Mean Corpuscular Hemoglobin Concent 35 g/dL (31-37) Red Cell Distribution Width 15.8 % (11.5-14.5) Platelet Count 195 x10^3/uL (140-400) Neutrophils (%) (Auto) 69 % (31-73) Lymphocytes (%) (Auto) 18 % (24-48) Monocytes (%) (Auto) 10 % (0-9) Eosinophils (%) (Auto) 2 % (0-3) Basophils (%) (Auto) 1 % (0-3) Neutrophils # (Auto) 6.6 x10^3uL (1.8-7.7) Lymphocytes # (Auto) 1.7 x10^3/uL (1.0-4.8) Monocytes # (Auto) 1.0 x10^3/uL (0.0-1.1) Eosinophils # (Auto) 0.2 x10^3/uL (0.0-0.7) Basophils # (Auto) 0.1 x10^3/uL (0.0-0.2) Sodium Level 140 mmol/L (136-145) Potassium Level 3.9 mmol/L (3.5-5.1) Chloride Level 108 mmol/L (98-107) Carbon Dioxide Level 24 mmol/L (21-32) Anion Gap 8 (6-14) Blood Urea Nitrogen 23 mg/dL (7-20) Creatinine 1.3 mg/dL (0.6-1.0) Estimated GFR (Cockcroft-Gault) 40.0 Glucose Level 147 mg/dL (70-99) Calcium Level 8.8 mg/dL (8.5-10.1) Laboratory Tests Test 08/30/18 15:45 08/31/18 07:40 Urine Collection Type Unknown Urine Color Yellow Urine Clarity Clear Urine pH 6.0 Urine Specific [place] 1.015 Urine Protein >=300 mg/dL (NEG-TRACE) Urine Glucose (UA) Negative mg/dL (NEG) Urine Ketones (Stick) Negative mg/dL (NEG) Urine Blood Large (NEG) Urine Nitrite Negative (NEG) Urine Bilirubin Negative (NEG) Urine Urobilinogen Dipstick 0.2 mg/dL (0.2 mg/dL) Urine Leukocyte Esterase Small (NEG) Urine RBC >40 /HPF (0-2) Urine WBC >40 /HPF (0-4) Urine Bacteria Many /HPF (0-FEW) White Blood Count 9.5 x10^3/uL (4.0-11.0) Red Blood Count 3.27 x10^6/uL (3.50-5.40) Hemoglobin 9.3 g/dL (12.0-15.5) Hematocrit 26.6 % (36.0-47.0) Mean Corpuscular Volume 82 fL (79-100) Mean Corpuscular Hemoglobin 29 pg (25-35) Mean Corpuscular Hemoglobin Concent 35 g/dL (31-37) Red Cell Distribution Width 15.8 % (11.5-14.5) Platelet Count 195 x10^3/uL (140-400) Neutrophils (%) (Auto) 69 % (31-73) Lymphocytes (%) (Auto) 18 % (24-48) Monocytes (%) (Auto) 10 % (0-9) Eosinophils (%) (Auto) 2 % (0-3) Basophils (%) (Auto) 1 % (0-3) Neutrophils # (Auto) 6.6 x10^3uL (1.8-7.7) Lymphocytes # (Auto) 1.7 x10^3/uL (1.0-4.8) Monocytes # (Auto) 1.0 x10^3/uL (0.0-1.1) Eosinophils # (Auto) 0.2 x10^3/uL (0.0-0.7) Basophils # (Auto) 0.1 x10^3/uL (0.0-0.2) Sodium Level 140 mmol/L (136-145) Potassium Level 3.9 mmol/L (3.5-5.1) Chloride Level 108 mmol/L (98-107) Carbon Dioxide Level 24 mmol/L (21-32) Anion Gap 8 (6-14) Blood Urea Nitrogen 23 mg/dL (7-20) Creatinine 1.3 mg/dL (0.6-1.0) Estimated GFR (Cockcroft-Gault) 40.0 Glucose Level 147 mg/dL (70-99) Calcium Level 8.8 mg/dL (8.5-10.1) Problem List Problems Medical Problems: (1) Upper GI bleeding Status: Acute Assessment/Plan hgb stable no surgical plans available as needed LAUREN RENAE MD 08/31/18 4198: SURGICAL PROGRESS NOTE Assessment/Plan Pt seen and examined. Agree with MsDejah Zee's note Pt feels well, no N/V abd soft, ND, NTTP will sign off, but please call for questions. KVNG ZEE APRN Aug 31, 2018 09:39 LAUREN RNEAE MD Aug 31, 2018 13:58
[2018-08-31] MEDS: IV NORMAL SALINE 1000ML BAG 1,000 ML IV SCH (09:40)
[2018-08-31] MEDS: PANTOPRAZOLE SODIUM IV DRIP 80 MG in IV NORMAL SALINE 100ML 100 ML IV SCH ×2 (09:40→20:16)
--- NOTE | 2018-08-31 10:26 | PDOC ---
Subjective: Subjective: Tolerating liquids. No further emesis. Objective: Vital Signs: Vital Signs Date Time Temp Pulse Resp B/P (MAP) Pulse Ox O2 Delivery O2 Flow Rate FiO2 08/31/18 08:30 94 134/77 08/31/18 07:00 98.0 18 99 Room Air 98.0 Labs: Laboratory Tests Test 08/30/18 15:45 08/31/18 07:40 Urine Collection Type Unknown Urine Color Yellow Urine Clarity Clear Urine pH 6.0 Urine Specific [place] 1.015 Urine Protein >=300 mg/dL (NEG-TRACE) Urine Glucose (UA) Negative mg/dL (NEG) Urine Ketones (Stick) Negative mg/dL (NEG) Urine Blood Large (NEG) Urine Nitrite Negative (NEG) Urine Bilirubin Negative (NEG) Urine Urobilinogen Dipstick 0.2 mg/dL (0.2 mg/dL) Urine Leukocyte Esterase Small (NEG) Urine RBC >40 /HPF (0-2) Urine WBC >40 /HPF (0-4) Urine Bacteria Many /HPF (0-FEW) White Blood Count 9.5 x10^3/uL (4.0-11.0) Red Blood Count 3.27 x10^6/uL (3.50-5.40) Hemoglobin 9.3 g/dL (12.0-15.5) Hematocrit 26.6 % (36.0-47.0) Mean Corpuscular Volume 82 fL (79-100) Mean Corpuscular Hemoglobin 29 pg (25-35) Mean Corpuscular Hemoglobin Concent 35 g/dL (31-37) Red Cell Distribution Width 15.8 % (11.5-14.5) Platelet Count 195 x10^3/uL (140-400) Neutrophils (%) (Auto) 69 % (31-73) Lymphocytes (%) (Auto) 18 % (24-48) Monocytes (%) (Auto) 10 % (0-9) Eosinophils (%) (Auto) 2 % (0-3) Basophils (%) (Auto) 1 % (0-3) Neutrophils # (Auto) 6.6 x10^3uL (1.8-7.7) Lymphocytes # (Auto) 1.7 x10^3/uL (1.0-4.8) Monocytes # (Auto) 1.0 x10^3/uL (0.0-1.1) Eosinophils # (Auto) 0.2 x10^3/uL (0.0-0.7) Basophils # (Auto) 0.1 x10^3/uL (0.0-0.2) Sodium Level 140 mmol/L (136-145) Potassium Level 3.9 mmol/L (3.5-5.1) Chloride Level 108 mmol/L (98-107) Carbon Dioxide Level 24 mmol/L (21-32) Anion Gap 8 (6-14) Blood Urea Nitrogen 23 mg/dL (7-20) Creatinine 1.3 mg/dL (0.6-1.0) Estimated GFR (Cockcroft-Gault) 40.0 Glucose Level 147 mg/dL (70-99) Calcium Level 8.8 mg/dL (8.5-10.1) Physical Exam: Physical Exam: GEN: NAD HEENT: OP clear CV: S1S2 without murmurs, rubs, or gallops RESP: CTAB without wheezing, rhonchi, or crackles ABD: NABS, SNT/ND EXT: No edema NEURO: AAO x 3 Assessment & Plan: Assessment : A/P: A/P: Hematemesis - s/p EGD with 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 Hgb stable after PRBCs. Now 9.3 H/o CVA on Eliquis and ASA Occasional heartburn CRC screen - unclear S/p cholecystectomy Chronic pain Plan: Monitor Hgb ADAT Cont PPI ggts and plan for PO after 72 hours MADY STEPHEN MD Aug 31, 2018 10:26
[2018-08-31 11:00] VITALS: BP 109/60
[2018-08-31] MEDS: MORPHINE SULFATE 4 MG/ML VIAL. IV PRN ×3 (11:41→20:19)
--- NOTE | 2018-08-31 13:01 | PDOC ---
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 s/p 3u PRBC dm2 htn hld h/o CVA with rt leg weakness on eliquis and asa GERD anxiety depression mild malnutrition benign esophageal stricutre s/p mild dilation in EGD WARD, vasomotor Plan: HB stable GI following EGD found stomach dielufuoy lesion with clots ivf NS 75cc/h, protonix drip as per gi hold asa, eliquis, lisinopril. coreg 12.5 mg bid PTOT FC History of Present Illness History of Present Illness ROS: no fever, chills, sob or chest pain came for hematemesis EGD showed dielufoy lesion with blood clots wo active bleeding 08/30: yesterday has one time vomiting with blood streaks, Hb stable after 3u PRBC. has one time melena. c/o rt leg pain, chronic post stroke, high BP, tachycardia. Vitals Vitals Vital Signs Date Time Temp Pulse Resp B/P (MAP) Pulse Ox O2 Delivery O2 Flow Rate FiO2 08/31/18 11:00 97.8 82 18 109/60 (76) 98 Room Air 97.8 Physical Exam Physical Exam bad hearing rt leg pain General: Alert, Oriented X3, Cooperative, No acute distress Heart: Regular rate, Normal S1, Normal S2, No murmurs Lungs: Clear Abdomen: Soft, No tenderness Extremities: No clubbing, No cyanosis Skin: No rashes, No breakdown Labs LABS Laboratory Tests Test 08/30/18 15:45 08/31/18 07:40 Urine Collection Type Unknown Urine Color Yellow Urine Clarity Clear Urine pH 6.0 Urine Specific [place] 1.015 Urine Protein >=300 mg/dL (NEG-TRACE) Urine Glucose (UA) Negative mg/dL (NEG) Urine Ketones (Stick) Negative mg/dL (NEG) Urine Blood Large (NEG) Urine Nitrite Negative (NEG) Urine Bilirubin Negative (NEG) Urine Urobilinogen Dipstick 0.2 mg/dL (0.2 mg/dL) Urine Leukocyte Esterase Small (NEG) Urine RBC >40 /HPF (0-2) Urine WBC >40 /HPF (0-4) Urine Bacteria Many /HPF (0-FEW) White Blood Count 9.5 x10^3/uL (4.0-11.0) Red Blood Count 3.27 x10^6/uL (3.50-5.40) Hemoglobin 9.3 g/dL (12.0-15.5) Hematocrit 26.6 % (36.0-47.0) Mean Corpuscular Volume 82 fL (79-100) Mean Corpuscular Hemoglobin 29 pg (25-35) Mean Corpuscular Hemoglobin Concent 35 g/dL (31-37) Red Cell Distribution Width 15.8 % (11.5-14.5) Platelet Count 195 x10^3/uL (140-400) Neutrophils (%) (Auto) 69 % (31-73) Lymphocytes (%) (Auto) 18 % (24-48) Monocytes (%) (Auto) 10 % (0-9) Eosinophils (%) (Auto) 2 % (0-3) Basophils (%) (Auto) 1 % (0-3) Neutrophils # (Auto) 6.6 x10^3uL (1.8-7.7) Lymphocytes # (Auto) 1.7 x10^3/uL (1.0-4.8) Monocytes # (Auto) 1.0 x10^3/uL (0.0-1.1) Eosinophils # (Auto) 0.2 x10^3/uL (0.0-0.7) Basophils # (Auto) 0.1 x10^3/uL (0.0-0.2) Sodium Level 140 mmol/L (136-145) Potassium Level 3.9 mmol/L (3.5-5.1) Chloride Level 108 mmol/L (98-107) Carbon Dioxide Level 24 mmol/L (21-32) Anion Gap 8 (6-14) Blood Urea Nitrogen 23 mg/dL (7-20) Creatinine 1.3 mg/dL (0.6-1.0) Estimated GFR (Cockcroft-Gault) 40.0 Glucose Level 147 mg/dL (70-99) Calcium Level 8.8 mg/dL (8.5-10.1) Assessment and Plan Assessmemt and Plan Problems Medical Problems: (1) Upper GI bleeding Status: Acute Comment Review of Relevant I have reviewed the following items pee (where applicable) has been applied. Labs Laboratory Tests Test 08/29/18 13:15 08/29/18 15:45 08/30/18 04:00 08/30/18 15:45 Stool Occult Blood Positive (NEG) Hemoglobin 10.0 g/dL (12.0-15.5) 10.0 g/dL (12.0-15.5) White Blood Count 10.8 x10^3/uL (4.0-11.0) Red Blood Count 3.54 x10^6/uL (3.50-5.40) Hematocrit 28.5 % (36.0-47.0) Mean Corpuscular Volume 81 fL (79-100) Mean Corpuscular Hemoglobin 28 pg (25-35) Mean Corpuscular Hemoglobin Concent 35 g/dL (31-37) Red Cell Distribution Width 15.2 % (11.5-14.5) Platelet Count 201 x10^3/uL (140-400) Neutrophils (%) (Auto) 75 % (31-73) Lymphocytes (%) (Auto) 15 % (24-48) Monocytes (%) (Auto) 9 % (0-9) Eosinophils (%) (Auto) 0 % (0-3) Basophils (%) (Auto) 1 % (0-3) Neutrophils # (Auto) 8.1 x10^3uL (1.8-7.7) Lymphocytes # (Auto) 1.6 x10^3/uL (1.0-4.8) Monocytes # (Auto) 1.0 x10^3/uL (0.0-1.1) Eosinophils # (Auto) 0.0 x10^3/uL (0.0-0.7) Basophils # (Auto) 0.1 x10^3/uL (0.0-0.2) Sodium Level 139 mmol/L (136-145) Potassium Level 3.7 mmol/L (3.5-5.1) Chloride Level 105 mmol/L (98-107) Carbon Dioxide Level 24 mmol/L (21-32) Anion Gap 10 (6-14) Blood Urea Nitrogen 34 mg/dL (7-20) Creatinine 1.2 mg/dL (0.6-1.0) Estimated GFR (Cockcroft-Gault) 43.9 BUN/Creatinine Ratio 28 (6-20) Glucose Level 197 mg/dL (70-99) Calcium Level 9.2 mg/dL (8.5-10.1) Total Bilirubin 0.7 mg/dL (0.2-1.0) Aspartate Amino Transf (AST/SGOT) 14 U/L (15-37) Alanine Aminotransferase (ALT/SGPT) 14 U/L (14-59) Alkaline Phosphatase 58 U/L (46-116) Total Protein 6.5 g/dL (6.4-8.2) Albumin 3.2 g/dL (3.4-5.0) Albumin/Globulin Ratio 1.0 (1.0-1.7) Urine Collection Type Unknown Urine Color Yellow Urine Clarity Clear Urine pH 6.0 Urine Specific [place] 1.015 Urine Protein >=300 mg/dL (NEG-TRACE) Urine Glucose (UA) Negative mg/dL (NEG) Urine Ketones (Stick) Negative mg/dL (NEG) Urine Blood Large (NEG) Urine Nitrite Negative (NEG) Urine Bilirubin Negative (NEG) Urine Urobilinogen Dipstick 0.2 mg/dL (0.2 mg/dL) Urine Leukocyte Esterase Small (NEG) Urine RBC >40 /HPF (0-2) Urine WBC >40 /HPF (0-4) Urine Bacteria Many /HPF (0-FEW) Test 08/31/18 07:40 White Blood Count 9.5 x10^3/uL (4.0-11.0) Red Blood Count 3.27 x10^6/uL (3.50-5.40) Hemoglobin 9.3 g/dL (12.0-15.5) Hematocrit 26.6 % (36.0-47.0) Mean Corpuscular Volume 82 fL (79-100) Mean Corpuscular Hemoglobin 29 pg (25-35) Mean Corpuscular Hemoglobin Concent 35 g/dL (31-37) Red Cell Distribution Width 15.8 % (11.5-14.5) Platelet Count 195 x10^3/uL (140-400) Neutrophils (%) (Auto) 69 % (31-73) Lymphocytes (%) (Auto) 18 % (24-48) Monocytes (%) (Auto) 10 % (0-9) Eosinophils (%) (Auto) 2 % (0-3) Basophils (%) (Auto) 1 % (0-3) Neutrophils # (Auto) 6.6 x10^3uL (1.8-7.7) Lymphocytes # (Auto) 1.7 x10^3/uL (1.0-4.8) Monocytes # (Auto) 1.0 x10^3/uL (0.0-1.1) Eosinophils # (Auto) 0.2 x10^3/uL (0.0-0.7) Basophils # (Auto) 0.1 x10^3/uL (0.0-0.2) Sodium Level 140 mmol/L (136-145) Potassium Level 3.9 mmol/L (3.5-5.1) Chloride Level 108 mmol/L (98-107) Carbon Dioxide Level 24 mmol/L (21-32) Anion Gap 8 (6-14) Blood Urea Nitrogen 23 mg/dL (7-20) Creatinine 1.3 mg/dL (0.6-1.0) Estimated GFR (Cockcroft-Gault) 40.0 Glucose Level 147 mg/dL (70-99) Calcium Level 8.8 mg/dL (8.5-10.1) Laboratory Tests Test 08/30/18 15:45 08/31/18 07:40 Urine Collection Type Unknown Urine Color Yellow Urine Clarity Clear Urine pH 6.0 Urine Specific [place] 1.015 Urine Protein >=300 mg/dL (NEG-TRACE) Urine Glucose (UA) Negative mg/dL (NEG) Urine Ketones (Stick) Negative mg/dL (NEG) Urine Blood Large (NEG) Urine Nitrite Negative (NEG) Urine Bilirubin Negative (NEG) Urine Urobilinogen Dipstick 0.2 mg/dL (0.2 mg/dL) Urine Leukocyte Esterase Small (NEG) Urine RBC >40 /HPF (0-2) Urine WBC >40 /HPF (0-4) Urine Bacteria Many /HPF (0-FEW) White Blood Count 9.5 x10^3/uL (4.0-11.0) Red Blood Count 3.27 x10^6/uL (3.50-5.40) Hemoglobin 9.3 g/dL (12.0-15.5) Hematocrit 26.6 % (36.0-47.0) Mean Corpuscular Volume 82 fL (79-100) Mean Corpuscular Hemoglobin 29 pg (25-35) Mean Corpuscular Hemoglobin Concent 35 g/dL (31-37) Red Cell Distribution Width 15.8 % (11.5-14.5) Platelet Count 195 x10^3/uL (140-400) Neutrophils (%) (Auto) 69 % (31-73) Lymphocytes (%) (Auto) 18 % (24-48) Monocytes (%) (Auto) 10 % (0-9) Eosinophils (%) (Auto) 2 % (0-3) Basophils (%) (Auto) 1 % (0-3) Neutrophils # (Auto) 6.6 x10^3uL (1.8-7.7) Lymphocytes # (Auto) 1.7 x10^3/uL (1.0-4.8) Monocytes # (Auto) 1.0 x10^3/uL (0.0-1.1) Eosinophils # (Auto) 0.2 x10^3/uL (0.0-0.7) Basophils # (Auto) 0.1 x10^3/uL (0.0-0.2) Sodium Level 140 mmol/L (136-145) Potassium Level 3.9 mmol/L (3.5-5.1) Chloride Level 108 mmol/L (98-107) Carbon Dioxide Level 24 mmol/L (21-32) Anion Gap 8 (6-14) Blood Urea Nitrogen 23 mg/dL (7-20) Creatinine 1.3 mg/dL (0.6-1.0) Estimated GFR (Cockcroft-Gault) 40.0 Glucose Level 147 mg/dL (70-99) Calcium Level 8.8 mg/dL (8.5-10.1) Medications Current Medications Sodium Chloride 500 ml @ 500 mls/hr 1X ONCE IV Last administered on at 04:48; Start 08/29/18 at 05:00; Stop 08/29/18 at 05:59; Status DC Pantoprazole Sodium 80 mg/ Sodium Chloride 100 ml @ 10 mls/hr 1X ONCE IV Last administered on 08/29/18at 05:40; Start 08/29/18 at 06:00; Stop 08/29/18 at 15:59; Status DC Pantoprazole Sodium (PROTONIX VIAL for IV PUSH) 80 mg 1X ONCE IVP Last administered on 08/29/18at 05:42; Start 08/29/18 at 06:00; Stop 08/29/18 at 06:01 ; Status DC Ondansetron HCl (Zofran) 4 mg PRN Q8HRS PRN IV NAUSEA/VOMITING 1ST CHOICE Last administered on 08/29/18at 15:38; Start 08/29/18 at 06:15; Stop 08/30/18 at 06:14 ; Status DC Sodium Chloride 1,000 ml @ 125 mls/hr Q8H IV Last administered on 08/29/18at 08 :13; Start 08/29/18 at 06:30; Stop 08/29/18 at 11:26; Status DC Ondansetron HCl (Zofran) 4 mg STK-MED ONCE .ROUTE ; Start 08/29/18 at 00:12; Stop 08/29/18 at 08:18; Status DC Sodium Chloride (NORMAL SALINE FLUSH for STERILE FIELD) 10 ml STK-MED ONCE .ROUTE ; Start 08/29/18 at 00:12; Stop 08/29/18 at 08:18; Status DC Hydromorphone HCl (Dilaudid) 0.5 mg 1X ONCE IV Last administered on 08/29/18at 09:19; Start 08/29/18 at 09:15; Stop 08/29/18 at 09:16; Status DC Midazolam HCl (Versed) 2 mg PRN 1X PRN IV PRIOR TO PROCEDURE; Start 08/29/18 at 10:15; Stop 08/29/18 at 18:00; Status DC Fentanyl Citrate (Fentanyl 2ml Vial) 25 mcg PRN Q5MIN PRN IV X 2 DOSES FOR PAIN ; Start 08/29/18 at 10:15; Stop 08/29/18 at 18:00; Status DC Fentanyl Citrate (Fentanyl 2ml Vial) 50 mcg PRN Q5MIN PRN IV X 2 DOSES FOR PAIN ; Start 08/29/18 at 10:15; Stop 08/29/18 at 18:00; Status DC Ringer's Solution 1,000 ml @ 125 mls/hr Q8H IV ; Start 08/29/18 at 10:00; Stop 08/29/18 at 18:00; Status DC Lidocaine HCl (Xylocaine-Mpf 1% 2ml Vial) 2 ml 1X PRN PRN ID IV START; Start at 10:15; Stop 08/29/18 at 18:00; Status DC Propofol 20 ml @ As Directed STK-MED ONCE IV ; Start 08/29/18 at 10:21; Stop at 10:22; Status DC Propofol 20 ml @ As Directed STK-MED ONCE IV ; Start 08/29/18 at 10:45; Stop at 10:47; Status DC Atorvastatin Calcium (Lipitor) 20 mg HS PO Last administered on 08/30/18at 22:24 ; Start 08/29/18 at 21:00 Buspirone HCl (Buspar) 5 mg TID PO Last administered on 08/31/18at 08:30; Start 08/29/18 at 14:00 Lisinopril (Prinivil) 20 mg DAILY PO ; Start 08/29/18 at 12:00; Stop 08/29/18 at 12:00; Status DC Trazodone HCl (Desyrel) 50 mg HS PO Last administered on 08/30/18at 22:24; Start 08/29/18 at 21:00 Carvedilol (Coreg) 12.5 mg BIDWMEALS PO ; Start 08/29/18 at 12:00; Stop at 12:00; Status DC Sertraline HCl (Zoloft) 100 mg DAILY PO Last administered on 08/31/18at 08:30; Start 08/29/18 at 12:00 Carvedilol (Coreg) 6.25 mg BIDWMEALS PO Last administered on 08/30/18at 08:53; Start 08/29/18 at 12:00; Stop 08/30/18 at 11:58; Status DC Acetaminophen (Tylenol) 650 mg PRN Q6HRS PRN PO FEVER; Start 08/29/18 at 11:30 Ondansetron HCl (Zofran) 4 mg PRN Q6HRS PRN IV NAUSEA/VOMITING; Start 08/29/18 at 11:30 Morphine Sulfate (Morphine Sulfate) 2 mg PRN Q2HR PRN IV MODERATE TO SEVERE PAIN Last administered on 08/31/18at 11:41; Start 08/29/18 at 11:30 Tramadol HCl (Ultram) 50 mg PRN Q6HRS PRN PO MILD TO MODERATE PAIN Last administered on 08/31/18at 08:30; Start 08/29/18 at 11:30 Hydralazine HCl (Apresoline Inj) 10 mg PRN Q4HRS PRN IVP ELEVATED BP, SEE COMMENTS; Start 08/29/18 at 11:30 Docusate Sodium (Colace) 100 mg PRN DAILY PRN PO CONSTIPATION; Start 08/29/18 at 11:30 Sodium Chloride 1,000 ml @ 75 mls/hr [id number] IV Last administered on at 09:40; Start 08/29/18 at 11:30 Iohexol (Omnipaque 300 Mg/ml) 100 ml STK-MED ONCE .ROUTE ; Start 08/29/18 at 11: 28; Stop 08/29/18 at 11:30; Status DC Heparin Sodium/ Sodium Chloride 1,500 ml @ As Directed STK-MED ONCE .ROUTE ; Start 08/29/18 at 11:28; Stop 08/29/18 at 11:30; Status DC Lidocaine/Sodium Bicarbonate (Buffered Lidocaine 1%) 3 ml STK-MED ONCE .ROUTE ; Start 08/29/18 at 11:29; Stop 08/29/18 at 11:31; Status DC Midazolam HCl (Versed) 2 mg STK-MED ONCE .ROUTE ; Start 08/29/18 at 12:19; Stop 08/29/18 at 12:21; Status DC Fentanyl Citrate (Fentanyl 2ml Vial) 100 mcg STK-MED ONCE .ROUTE ; Start at 12:19; Stop 08/29/18 at 12:21; Status DC Pantoprazole Sodium 80 mg/ Sodium Chloride 100 ml @ 10 mls/hr Q10H IV Last administered on 08/31/18at 09:40; Start 08/29/18 at 17:00 Carvedilol (Coreg) 12.5 mg BIDWMEALS PO Last administered on 08/31/18at 08:30; Start 08/30/18 at 17:00 Active Scripts Active Reported Vitamin D (Cholecalciferol (Vitamin D3)) 2,000 Unit Capsule 1 Cap PO DAILY Trulicity (Dulaglutide) 1.5 Mg/0.5 Ml Pen.injctr 1.5 Mg SQ WEEKLYAC Trazodone Hcl 50 Mg Tablet 50 Mg PO HS Zoloft (Sertraline Hcl) 100 Mg Tablet 1 Tab PO DAILY Protonix (Pantoprazole Sodium) 40 Mg GranpktDejahdr 40 Mg PO DAILY Metformin Hcl 500 Mg Tablet 500 Mg PO BIDWMEALS Lisinopril 20 Mg Tablet 1 Tab PO DAILY Januvia (Sitagliptin Phosphate) 50 Mg Tablet 1 Tab PO DAILY Eliquis (Apixaban) 2.5 Mg Tablet 2.5 Mg PO BID Claritin (Loratadine) 10 Mg Tablet 1 Tab PO DAILY Carvedilol 25 Mg Tablet 12.5 Mg PO BIDWMEALS Buspirone Hcl 5 Mg Tablet 1 Tab PO TID Bethanechol Chloride 25 Mg Tablet 25 Mg PO TID Atorvastatin Calcium 20 Mg Tablet 20 Mg PO HS Aspirin 81 Mg Tab.chew 1 Tab PO DAILY Vitals/I & O Vital Sign - Last 24 Hours 08/30/18 08/30/18 08/30/18 08/30/18 13:00 16:00 18:37 18:37 Temp 98.5 98.5 Pulse 89 83 87 Resp 17 17 20 B/P (MAP) 118/62 (80) 108/67 (81) 153/59 Pulse Ox 96 100 100 O2 Delivery Room Air Room Air Room Air 08/30/18 08/30/18 08/30/18 08/30/18 20:00 20:00 20:37 23:45 Temp 98.1 98.2 98.1 98.2 Pulse 87 113 Resp 18 18 B/P (MAP) 138/65 (89) 97/64 (75) Pulse Ox 99 97 O2 Delivery Room Air Room Air Room Air Room Air 08/31/18 08/31/18 08/31/18 08/31/18 01:17 02:18 03:40 07:00 Temp 97.9 98.0 97.9 98.0 Pulse 94 94 Resp 18 18 B/P (MAP) 104/68 (80) 134/77 (96) Pulse Ox 97 99 O2 Delivery Room Air Room Air Room Air Room Air 08/31/18 08/31/18 08/31/18 08:00 08:30 11:00 Temp 97.8 97.8 Pulse 94 82 Resp 18 B/P (MAP) 134/77 109/60 (76) Pulse Ox 98 O2 Delivery Room Air Room Air Intake and Output 08/30/18 08/30/18 08/31/18 15:01 23:01 07:01 Intake Total 1957.12 ml 100 ml Output Total 400 ml 100 ml Balance -400 ml 1857.12 ml 100 ml SABIHA RILEY MD Aug 31, 2018 13:01
[2018-08-31 15:00] VITALS: BP 109/56
--- NOTE | 2018-08-31 16:26 | NUR ---
Patient voiding small amounts, frequently in bedpan. Bladder scan done after patient voided last. PVR=84 mls. Continue to monitor
[2018-08-31 19:20] VITALS: BP 123/52
[2018-08-31] MEDS: traZODone 50 MG TABLET. PO SCH (20:25)
[2018-08-31] MEDS: ATORVASTATIN CALCIUM 20 MG TABLET PO SCH (20:25)
[2018-08-31 23:11] VITALS: BP 123/53
[2018-09-01] MEDS: MORPHINE SULFATE 4 MG/ML VIAL. IV PRN ×3 (03:21→11:21)
[2018-09-01 03:32] VITALS: BP 146/53
[2018-09-01] MEDS: PANTOPRAZOLE SODIUM IV DRIP 80 MG in IV NORMAL SALINE 100ML 100 ML IV SCH (06:47)
[2018-09-01] MEDS: IV NORMAL SALINE 1000ML BAG 1,000 ML IV SCH (06:48)
[2018-09-01 07:30] VITALS: BP 142/58
[2018-09-01] MEDS: SERTRALINE 50 MG TABLET. PO SCH (09:39)
[2018-09-01] MEDS: busPIRone 5 MG TABLET. PO SCH ×3 (09:39→20:42)
[2018-09-01] MEDS: CARVEDILOL 12.5 MG TABLET. PO SCH ×2 (09:41→16:39)
[2018-09-01 11:02] VITALS: BP 129/61
--- NOTE | 2018-09-01 11:48 | PDOC ---
Subjective: Subjective: Leg pain, wants a pain pill. Needs to use the bedpan. Denies n/v or bleeding. Tolerating full liquids. Says she stooled yesterday or the day before. Objective: Objective: No bleeding per RN. Has orders to [facility]. Temp 99.9. Vital Signs: Vital Signs Date Time Temp Pulse Resp B/P (MAP) Pulse Ox O2 Delivery O2 Flow Rate FiO2 09/01/18 11:21 16 96 Room Air 09/01/18 11:02 99.9 91 129/61 (83) 99.9 Imaging: EGD 08/29/18 benign esophageal stricture s/p scope passage with minimal bleed normal GE junctoin without varices normal duodenum adherent clot cardia of stomach consistent with [place] lesion PE: GEN: NAD LUNGS: CTAB HEART: RRR ABD: S/ND/N NEURO/PSYCH: A & O 3 - near tears at end of interview re: leg pain A/P: Hematemesis - resolved -on EGD: adherent clot cardia of stomach consistent with [place]ul[place] lesion -h/o CVA previously on Eliquis and ASA Anemia - stable -Hgb last checked 08/31 Chronic pain, frequent urination -defer to primary -- Apparently eating (w/ orders to [facility]) so will stop PPI drip and change to PO. PATRICIA SWANSON Sep 01, 2018 11:48 ALVARO SOUSA MD Sep 01, 2018 12:08
[2018-09-01] MEDS: traMADol 50 MG TABLET PO PRN ×2 (13:06→20:41)
--- NOTE | 2018-09-01 13:25 | PDOC ---
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 s/p 3u PRBC dm2 htn hld h/o CVA with rt leg weakness on eliquis and asa GERD anxiety depression mild malnutrition benign esophageal stricutre s/p mild dilation in EGD WARD, vasomotor History of Present Illness History of Present Illness She Has no complaints GI note reviewed, liquid diet until Saturday- so far stable ROS: no fever, chills, sob or chest pain EGD showed dielufoy lesion with blood clots wo active bleeding Vitals Vitals Vital Signs Date Time Temp Pulse Resp B/P (MAP) Pulse Ox O2 Delivery O2 Flow Rate FiO2 09/01/18 13:06 16 96 Room Air 09/01/18 11:02 99.9 91 129/61 (83) 99.9 Physical Exam Physical Exam bad hearing rt leg pain General: Alert, Oriented X3, Cooperative, No acute distress Heart: Regular rate, Normal S1, Normal S2, No murmurs Lungs: Clear Abdomen: Soft, No tenderness Extremities: No clubbing, No cyanosis Skin: No rashes, No breakdown Review of Systems Review of Systems A 14 point ROS was completed with the following noted as positive: Other systems reviewed and negative. \CONSTITUTIONAL: No fever or chills EYES: No recent changes SKIN: No rash or itching CARDIOVASCULAR: No chest pain, syncope, palpitations, or edema RESPIRATORY: No SOB or cough GASTROINTESTINAL: No nausea, vomiting or abdominal pain NEUROLOGICAL: No headaches or weakness ENDOCRINE: No cold or heat intolerance GENITOURINARY: No urgency or frequency of urination MUSCULOSKELETAL: No back pain or joint pain LYMPHATICS: No enlarged lymph nodes PSYCHIATRIC: No anxiety or depression Assessment and Plan Assessmemt and Plan Problems Medical Problems: (1) Upper GI bleeding Status: Acute Comment Review of Relevant I have reviewed the following items pee (where applicable) has been applied. Labs Laboratory Tests Test 08/30/18 15:45 08/31/18 07:40 Urine Collection Type Unknown Urine Color Yellow Urine Clarity Clear Urine pH 6.0 Urine Specific [place] 1.015 Urine Protein >=300 mg/dL (NEG-TRACE) Urine Glucose (UA) Negative mg/dL (NEG) Urine Ketones (Stick) Negative mg/dL (NEG) Urine Blood Large (NEG) Urine Nitrite Negative (NEG) Urine Bilirubin Negative (NEG) Urine Urobilinogen Dipstick 0.2 mg/dL (0.2 mg/dL) Urine Leukocyte Esterase Small (NEG) Urine RBC >40 /HPF (0-2) Urine WBC >40 /HPF (0-4) Urine Bacteria Many /HPF (0-FEW) White Blood Count 9.5 x10^3/uL (4.0-11.0) Red Blood Count 3.27 x10^6/uL (3.50-5.40) Hemoglobin 9.3 g/dL (12.0-15.5) Hematocrit 26.6 % (36.0-47.0) Mean Corpuscular Volume 82 fL (79-100) Mean Corpuscular Hemoglobin 29 pg (25-35) Mean Corpuscular Hemoglobin Concent 35 g/dL (31-37) Red Cell Distribution Width 15.8 % (11.5-14.5) Platelet Count 195 x10^3/uL (140-400) Neutrophils (%) (Auto) 69 % (31-73) Lymphocytes (%) (Auto) 18 % (24-48) Monocytes (%) (Auto) 10 % (0-9) Eosinophils (%) (Auto) 2 % (0-3) Basophils (%) (Auto) 1 % (0-3) Neutrophils # (Auto) 6.6 x10^3uL (1.8-7.7) Lymphocytes # (Auto) 1.7 x10^3/uL (1.0-4.8) Monocytes # (Auto) 1.0 x10^3/uL (0.0-1.1) Eosinophils # (Auto) 0.2 x10^3/uL (0.0-0.7) Basophils # (Auto) 0.1 x10^3/uL (0.0-0.2) Sodium Level 140 mmol/L (136-145) Potassium Level 3.9 mmol/L (3.5-5.1) Chloride Level 108 mmol/L (98-107) Carbon Dioxide Level 24 mmol/L (21-32) Anion Gap 8 (6-14) Blood Urea Nitrogen 23 mg/dL (7-20) Creatinine 1.3 mg/dL (0.6-1.0) Estimated GFR (Cockcroft-Gault) 40.0 Glucose Level 147 mg/dL (70-99) Calcium Level 8.8 mg/dL (8.5-10.1) Medications Current Medications Sodium Chloride 500 ml @ 500 mls/hr 1X ONCE IV Last administered on at 04:48; Start 08/29/18 at 05:00; Stop 08/29/18 at 05:59; Status DC Pantoprazole Sodium 80 mg/ Sodium Chloride 100 ml @ 10 mls/hr 1X ONCE IV Last administered on 08/29/18at 05:40; Start 08/29/18 at 06:00; Stop 08/29/18 at 15:59; Status DC Pantoprazole Sodium (PROTONIX VIAL for IV PUSH) 80 mg 1X ONCE IVP Last administered on 08/29/18at 05:42; Start 08/29/18 at 06:00; Stop 08/29/18 at 06:01 ; Status DC Ondansetron HCl (Zofran) 4 mg PRN Q8HRS PRN IV NAUSEA/VOMITING 1ST CHOICE Last administered on 08/29/18at 15:38; Start 08/29/18 at 06:15; Stop 08/30/18 at 06:14 ; Status DC Sodium Chloride 1,000 ml @ 125 mls/hr Q8H IV Last administered on 08/29/18at 08 :13; Start 08/29/18 at 06:30; Stop 08/29/18 at 11:26; Status DC Ondansetron HCl (Zofran) 4 mg STK-MED ONCE .ROUTE ; Start 08/29/18 at 00:12; Stop 08/29/18 at 08:18; Status DC Sodium Chloride (NORMAL SALINE FLUSH for STERILE FIELD) 10 ml STK-MED ONCE .ROUTE ; Start 08/29/18 at 00:12; Stop 08/29/18 at 08:18; Status DC Hydromorphone HCl (Dilaudid) 0.5 mg 1X ONCE IV Last administered on 08/29/18at 09:19; Start 08/29/18 at 09:15; Stop 08/29/18 at 09:16; Status DC Midazolam HCl (Versed) 2 mg PRN 1X PRN IV PRIOR TO PROCEDURE; Start 08/29/18 at 10:15; Stop 08/29/18 at 18:00; Status DC Fentanyl Citrate (Fentanyl 2ml Vial) 25 mcg PRN Q5MIN PRN IV X 2 DOSES FOR PAIN ; Start 08/29/18 at 10:15; Stop 08/29/18 at 18:00; Status DC Fentanyl Citrate (Fentanyl 2ml Vial) 50 mcg PRN Q5MIN PRN IV X 2 DOSES FOR PAIN ; Start 08/29/18 at 10:15; Stop 08/29/18 at 18:00; Status DC Ringer's Solution 1,000 ml @ 125 mls/hr Q8H IV ; Start 08/29/18 at 10:00; Stop 08/29/18 at 18:00; Status DC Lidocaine HCl (Xylocaine-Mpf 1% 2ml Vial) 2 ml 1X PRN PRN ID IV START; Start at 10:15; Stop 08/29/18 at 18:00; Status DC Propofol 20 ml @ As Directed STK-MED ONCE IV ; Start 08/29/18 at 10:21; Stop at 10:22; Status DC Propofol 20 ml @ As Directed STK-MED ONCE IV ; Start 08/29/18 at 10:45; Stop at 10:47; Status DC Atorvastatin Calcium (Lipitor) 20 mg HS PO Last administered on 08/30/18at 22:24 ; Start 08/29/18 at 21:00 Buspirone HCl (Buspar) 5 mg TID PO Last administered on 09/01/18at 09:39; Start 08/29/18 at 14:00 Lisinopril (Prinivil) 20 mg DAILY PO ; Start 08/29/18 at 12:00; Stop 08/29/18 at 12:00; Status DC Trazodone HCl (Desyrel) 50 mg HS PO Last administered on 08/30/18at 22:24; Start 08/29/18 at 21:00 Carvedilol (Coreg) 12.5 mg BIDWMEALS PO ; Start 08/29/18 at 12:00; Stop at 12:00; Status DC Sertraline HCl (Zoloft) 100 mg DAILY PO Last administered on 09/01/18at 09:39; Start 08/29/18 at 12:00 Carvedilol (Coreg) 6.25 mg BIDWMEALS PO Last administered on 08/30/18at 08:53; Start 08/29/18 at 12:00; Stop 08/30/18 at 11:58; Status DC Acetaminophen (Tylenol) 650 mg PRN Q6HRS PRN PO FEVER; Start 08/29/18 at 11:30 Ondansetron HCl (Zofran) 4 mg PRN Q6HRS PRN IV NAUSEA/VOMITING; Start 08/29/18 at 11:30 Morphine Sulfate (Morphine Sulfate) 2 mg PRN Q2HR PRN IV MODERATE TO SEVERE PAIN Last administered on 09/01/18at 11:21; Start 08/29/18 at 11:30 Tramadol HCl (Ultram) 50 mg PRN Q6HRS PRN PO MILD TO MODERATE PAIN Last administered on 09/01/18at 13:06; Start 08/29/18 at 11:30 Hydralazine HCl (Apresoline Inj) 10 mg PRN Q4HRS PRN IVP ELEVATED BP, SEE COMMENTS; Start 08/29/18 at 11:30 Docusate Sodium (Colace) 100 mg PRN DAILY PRN PO CONSTIPATION; Start 08/29/18 at 11:30 Sodium Chloride 1,000 ml @ 75 mls/hr [id number] IV Last administered on at 06:48; Start 08/29/18 at 11:30 Iohexol (Omnipaque 300 Mg/ml) 100 ml STK-MED ONCE .ROUTE ; Start 08/29/18 at 11: 28; Stop 08/29/18 at 11:30; Status DC Heparin Sodium/ Sodium Chloride 500 ml @ As Directed STK-MED ONCE .ROUTE ; Start 08/29/18 at 11:28; Stop 08/29/18 at 11:30; Status DC Lidocaine/Sodium Bicarbonate (Buffered Lidocaine 1%) 3 ml STK-MED ONCE .ROUTE ; Start 08/29/18 at 11:29; Stop 08/29/18 at 11:31; Status DC Midazolam HCl (Versed) 2 mg STK-MED ONCE .ROUTE ; Start 08/29/18 at 12:19; Stop 08/29/18 at 12:21; Status DC Fentanyl Citrate (Fentanyl 2ml Vial) 100 mcg STK-MED ONCE .ROUTE ; Start at 12:19; Stop 08/29/18 at 12:21; Status DC Pantoprazole Sodium 80 mg/ Sodium Chloride 100 ml @ 10 mls/hr Q10H IV Last administered on 09/01/18at 06:47; Start 08/29/18 at 17:00; Stop 09/01/18 at 11:44 ; Status DC Carvedilol (Coreg) 12.5 mg BIDWMEALS PO Last administered on 09/01/18at 09:41; Start 08/30/18 at 17:00 Pantoprazole Sodium (Protonix) 40 mg DAILYAC PO ; Start 09/02/18 at 07:30 Active Scripts Active Reported Vitamin D (Cholecalciferol (Vitamin D3)) 2,000 Unit Capsule 1 Cap PO DAILY Trulicity (Dulaglutide) 1.5 Mg/0.5 Ml Pen.injctr 1.5 Mg SQ WEEKLYAC Trazodone Hcl 50 Mg Tablet 50 Mg PO HS Zoloft (Sertraline Hcl) 100 Mg Tablet 1 Tab PO DAILY Protonix (Pantoprazole Sodium) 40 Mg Granpkt.dr 40 Mg PO DAILY Metformin Hcl 500 Mg Tablet 500 Mg PO BIDWMEALS Lisinopril 20 Mg Tablet 1 Tab PO DAILY Januvia (Sitagliptin Phosphate) 50 Mg Tablet 1 Tab PO DAILY Eliquis (Apixaban) 2.5 Mg Tablet 2.5 Mg PO BID Claritin (Loratadine) 10 Mg Tablet 1 Tab PO DAILY Carvedilol 25 Mg Tablet 12.5 Mg PO BIDWMEALS Buspirone Hcl 5 Mg Tablet 1 Tab PO TID Bethanechol Chloride 25 Mg Tablet 25 Mg PO TID Atorvastatin Calcium 20 Mg Tablet 20 Mg PO HS Aspirin 81 Mg Tab.chew 1 Tab PO DAILY Vitals/I & O Vital Sign - Last 24 Hours 08/31/18 08/31/18 08/31/18 08/31/18 15:00 17:58 19:20 20:00 Temp 98.8 98.6 98.8 98.6 Pulse 83 83 85 Resp 18 19 B/P (MAP) 109/56 (73) 109/56 123/52 (75) Pulse Ox 98 95 O2 Delivery Room Air Room Air Room Air 08/31/18 08/31/18 09/01/18 09/01/18 20:19 23:11 03:21 03:32 Temp 98.5 98.5 98.5 98.5 Pulse 80 86 Resp 16 22 B/P (MAP) 123/53 (76) 146/53 (84) Pulse Ox 95 96 96 92 O2 Delivery Room Air Room Air Room Air Room Air 09/01/18 09/01/18 09/01/18 09/01/18 06:51 07:30 07:31 08:00 Temp 98.9 98.9 Pulse 85 Resp 20 B/P (MAP) 142/58 (86) Pulse Ox 92 97 92 O2 Delivery Room Air Room Air Room Air Room Air 09/01/18 09/01/18 09/01/18 09/01/18 09:41 11:02 11:21 13:06 Temp 99.9 99.9 Pulse 85 91 Resp 16 16 16 B/P (MAP) 142/58 129/61 (83) Pulse Ox 96 96 96 O2 Delivery Room Air Room Air Room Air Intake and Output 08/31/18 08/31/18 09/01/18 15:01 23:01 07:01 Intake Total 850 ml 418 ml Balance 850 ml 418 ml CARLEE WARNER MD Sep 01, 2018 13:25
[2018-09-01 14:58] VITALS: BP 125/71
[2018-09-01 19:00] VITALS: BP 148/68
[2018-09-01] MEDS: ATORVASTATIN CALCIUM 20 MG TABLET PO SCH (20:41)
[2018-09-01] MEDS: traZODone 50 MG TABLET. PO SCH (20:42)
[2018-09-01 23:00] VITALS: BP 128/60
[2018-09-02 03:00] VITALS: BP 130/64
[2018-09-02 07:20] VITALS: BP 162/55
[2018-09-02] MEDS ORDERED: PANTOPRAZOLE 40 MG TABLET.DR. PO SCH (07:30)
[2018-09-02] MEDS: SERTRALINE 50 MG TABLET. PO SCH (07:31)
[2018-09-02] MEDS: busPIRone 5 MG TABLET. PO SCH ×2 (07:31→14:13)
[2018-09-02] MEDS: MORPHINE SULFATE 4 MG/ML VIAL. IV PRN ×3 (07:32→14:46)
[2018-09-02] MEDS: CARVEDILOL 12.5 MG TABLET. PO SCH (07:33)
[2018-09-02 08:28] LABS: HEMATOCRIT 26.5 % (36.0-47.0); HEMOGLOBIN 9.3 g/dL (12.0-15.5)
--- NOTE | 2018-09-02 10:38 | PDOC ---
Subjective: Subjective: No bleeding, tolerating PO - jokes "I'm probably eating too much." Objective: Vital Signs: Vital Signs Date Time Temp Pulse Resp B/P (MAP) Pulse Ox O2 Delivery O2 Flow Rate FiO2 09/02/18 08:33 99 Room Air 4.0 09/02/18 07:33 78 162/55 09/02/18 07:20 98.3 18 98.3 Labs: Laboratory Tests Test 09/02/18 07:35 Hemoglobin 9.3 g/dL Hematocrit 26.5 % Mean Corpuscular Hemoglobin Concent 35 g/dL URINE CULTURE Preliminary Preliminary report URINE CULTURE RES 1 Preliminary Gram negative rods PE: GEN: NAD LUNGS: CTAB HEART: RRR ABD: NABS, S/ND/NT NEURO/PSYCH: A & O 3 A/P: Hematemesis - resolved -on EGD: adherent clot cardia of stomach consistent with Dieulafoy lesion -h/o CVA previously on Eliquis and ASA ---> can resume Eliquis around 09/08/18 w / lifelong PPI Anemia - stable UTI -- Stable GI-dennison - AN URIAS per primary. PATRICIA SWANSON Sep 02, 2018 10:37
[2018-09-02 10:57] VITALS: BP 142/47
--- NOTE | 2018-09-02 11:07 | PDOC ---
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 s/p 3u PRBC dm2 htn hld h/o CVA with rt leg weakness on eliquis and asa GERD anxiety depression mild malnutrition benign esophageal stricutre s/p mild dilation in EGD WARD, vasomotor headache Neck Stiffness History of Present Illness History of Present Illness NO Reports of further GI bleed Hemodynamically stable Hemoglobin is up to 9 She does complain of headache and neck stiffness today ROS: no fever, chills, sob or chest pain EGD showed dielufoy lesion with blood clots wo active bleeding PLAN: Liq Diet until Saturday Flexeril 1 now then when necessary Tylenol 1 now Vitals Vitals Vital Signs Date Time Temp Pulse Resp B/P (MAP) Pulse Ox O2 Delivery O2 Flow Rate FiO2 09/02/18 10:57 99.2 76 17 142/47 (78) 97 Room Air 99.2 09/02/18 08:33 4.0 Physical Exam Physical Exam bad hearing rt leg pain General: Alert, Oriented X3, Cooperative, No acute distress Heart: Regular rate, Normal S1, Normal S2, No murmurs Lungs: Clear Abdomen: Soft, No tenderness Extremities: No clubbing, No cyanosis Skin: No rashes, No breakdown Labs LABS Laboratory Tests Test 09/02/18 07:35 Hemoglobin 9.3 g/dL (12.0-15.5) Hematocrit 26.5 % (36.0-47.0) Mean Corpuscular Hemoglobin Concent 35 g/dL (31-37) Review of Systems Review of Systems Headache and neck stiffness otherwise rest of ROS negative Assessment and Plan Assessmemt and Plan Problems Medical Problems: (1) Upper GI bleeding Status: Acute Comment Review of Relevant I have reviewed the following items pee (where applicable) has been applied. Labs Laboratory Tests Test 09/02/18 07:35 Hemoglobin 9.3 g/dL (12.0-15.5) Hematocrit 26.5 % (36.0-47.0) Mean Corpuscular Hemoglobin Concent 35 g/dL (31-37) Laboratory Tests Test 09/02/18 07:35 Hemoglobin 9.3 g/dL (12.0-15.5) Hematocrit 26.5 % (36.0-47.0) Mean Corpuscular Hemoglobin Concent 35 g/dL (31-37) Microbiology 08/30/18 Urine Culture - Preliminary, Resulted 08/30/18 Urine Culture Result 1 (YADIRA) - Preliminary, Resulted Medications Current Medications Sodium Chloride 500 ml @ 500 mls/hr 1X ONCE IV Last administered on at 04:48; Start 08/29/18 at 05:00; Stop 08/29/18 at 05:59; Status DC Pantoprazole Sodium 80 mg/ Sodium Chloride 100 ml @ 10 mls/hr 1X ONCE IV Last administered on 08/29/18at 05:40; Start 08/29/18 at 06:00; Stop 08/29/18 at 15:59; Status DC Pantoprazole Sodium (PROTONIX VIAL for IV PUSH) 80 mg 1X ONCE IVP Last administered on 08/29/18at 05:42; Start 08/29/18 at 06:00; Stop 08/29/18 at 06:01 ; Status DC Ondansetron HCl (Zofran) 4 mg PRN Q8HRS PRN IV NAUSEA/VOMITING 1ST CHOICE Last administered on 08/29/18at 15:38; Start 08/29/18 at 06:15; Stop 08/30/18 at 06:14 ; Status DC Sodium Chloride 1,000 ml @ 125 mls/hr Q8H IV Last administered on 08/29/18at 08 :13; Start 08/29/18 at 06:30; Stop 08/29/18 at 11:26; Status DC Ondansetron HCl (Zofran) 4 mg STK-MED ONCE .ROUTE ; Start 08/29/18 at 00:12; Stop 08/29/18 at 08:18; Status DC Sodium Chloride (NORMAL SALINE FLUSH for STERILE FIELD) 10 ml STK-MED ONCE .ROUTE ; Start 08/29/18 at 00:12; Stop 08/29/18 at 08:18; Status DC Hydromorphone HCl (Dilaudid) 0.5 mg 1X ONCE IV Last administered on 08/29/18at 09:19; Start 08/29/18 at 09:15; Stop 08/29/18 at 09:16; Status DC Midazolam HCl (Versed) 2 mg PRN 1X PRN IV PRIOR TO PROCEDURE; Start 08/29/18 at 10:15; Stop 08/29/18 at 18:00; Status DC Fentanyl Citrate (Fentanyl 2ml Vial) 25 mcg PRN Q5MIN PRN IV X 2 DOSES FOR PAIN ; Start 08/29/18 at 10:15; Stop 08/29/18 at 18:00; Status DC Fentanyl Citrate (Fentanyl 2ml Vial) 50 mcg PRN Q5MIN PRN IV X 2 DOSES FOR PAIN ; Start 08/29/18 at 10:15; Stop 08/29/18 at 18:00; Status DC Ringer's Solution 1,000 ml @ 125 mls/hr Q8H IV ; Start 08/29/18 at 10:00; Stop 08/29/18 at 18:00; Status DC Lidocaine HCl (Xylocaine-Mpf 1% 2ml Vial) 2 ml 1X PRN PRN ID IV START; Start at 10:15; Stop 08/29/18 at 18:00; Status DC Propofol 20 ml @ As Directed STK-MED ONCE IV ; Start 08/29/18 at 10:21; Stop at 10:22; Status DC Propofol 20 ml @ As Directed STK-MED ONCE IV ; Start 08/29/18 at 10:45; Stop at 10:47; Status DC Atorvastatin Calcium (Lipitor) 20 mg HS PO Last administered on 09/01/18at 20:41 ; Start 08/29/18 at 21:00 Buspirone HCl (Buspar) 5 mg TID PO Last administered on 09/02/18at 07:31; Start 08/29/18 at 14:00 Lisinopril (Prinivil) 20 mg DAILY PO ; Start 08/29/18 at 12:00; Stop 08/29/18 at 12:00; Status DC Trazodone HCl (Desyrel) 50 mg HS PO Last administered on 09/01/18at 20:42; Start 08/29/18 at 21:00 Carvedilol (Coreg) 12.5 mg BIDWMEALS PO ; Start 08/29/18 at 12:00; Stop at 12:00; Status DC Sertraline HCl (Zoloft) 100 mg DAILY PO Last administered on 09/02/18at 07:31; Start 08/29/18 at 12:00 Carvedilol (Coreg) 6.25 mg BIDWMEALS PO Last administered on 08/30/18at 08:53; Start 08/29/18 at 12:00; Stop 08/30/18 at 11:58; Status DC Acetaminophen (Tylenol) 650 mg PRN Q6HRS PRN PO FEVER Last administered on 09/01at 20:41; Start 08/29/18 at 11:30 Ondansetron HCl (Zofran) 4 mg PRN Q6HRS PRN IV NAUSEA/VOMITING; Start 08/29/18 at 11:30 Morphine Sulfate (Morphine Sulfate) 2 mg PRN Q2HR PRN IV MODERATE TO SEVERE PAIN Last administered on 09/02/18at 07:32; Start 08/29/18 at 11:30 Tramadol HCl (Ultram) 50 mg PRN Q6HRS PRN PO MILD TO MODERATE PAIN Last administered on 09/01/18at 20:41; Start 08/29/18 at 11:30 Hydralazine HCl (Apresoline Inj) 10 mg PRN Q4HRS PRN IVP ELEVATED BP, SEE COMMENTS; Start 08/29/18 at 11:30 Docusate Sodium (Colace) 100 mg PRN DAILY PRN PO CONSTIPATION; Start 08/29/18 at 11:30 Sodium Chloride 1,000 ml @ 75 mls/hr [id number] IV Last administered on at 06:48; Start 08/29/18 at 11:30; Stop 09/01/18 at 13:26; Status DC Iohexol (Omnipaque 300 Mg/ml) 100 ml STK-MED ONCE .ROUTE ; Start 08/29/18 at 11: 28; Stop 08/29/18 at 11:30; Status DC Heparin Sodium/ Sodium Chloride 500 ml @ As Directed STK-MED ONCE .ROUTE ; Start 08/29/18 at 11:28; Stop 08/29/18 at 11:30; Status DC Lidocaine/Sodium Bicarbonate (Buffered Lidocaine 1%) 3 ml STK-MED ONCE .ROUTE ; Start 08/29/18 at 11:29; Stop 08/29/18 at 11:31; Status DC Midazolam HCl (Versed) 2 mg STK-MED ONCE .ROUTE ; Start 08/29/18 at 12:19; Stop 08/29/18 at 12:21; Status DC Fentanyl Citrate (Fentanyl 2ml Vial) 100 mcg STK-MED ONCE .ROUTE ; Start at 12:19; Stop 08/29/18 at 12:21; Status DC Pantoprazole Sodium 80 mg/ Sodium Chloride 100 ml @ 10 mls/hr Q10H IV Last administered on 09/01/18at 06:47; Start 08/29/18 at 17:00; Stop 09/01/18 at 11:44 ; Status DC Carvedilol (Coreg) 12.5 mg BIDWMEALS PO Last administered on 09/02/18at 07:33; Start 08/30/18 at 17:00 Pantoprazole Sodium (Protonix) 40 mg DAILYAC PO Last administered on 09/02/18at 07:31; Start 09/02/18 at 07:30 Polyethylene Glycol (miraLAX PACKET) 17 gm DAILY PO ; Start 09/03/18 at 09:00 Active Scripts Active Reported Vitamin D (Cholecalciferol (Vitamin D3)) 2,000 Unit Capsule 1 Cap PO DAILY Trulicity (Dulaglutide) 1.5 Mg/0.5 Ml Pen.injctr 1.5 Mg SQ WEEKLYAC Trazodone Hcl 50 Mg Tablet 50 Mg PO HS Zoloft (Sertraline Hcl) 100 Mg Tablet 1 Tab PO DAILY Protonix (Pantoprazole Sodium) 40 Mg Granpkt.dr 40 Mg PO DAILY Metformin Hcl 500 Mg Tablet 500 Mg PO BIDWMEALS Lisinopril 20 Mg Tablet 1 Tab PO DAILY Januvia (Sitagliptin Phosphate) 50 Mg Tablet 1 Tab PO DAILY Eliquis (Apixaban) 2.5 Mg Tablet 2.5 Mg PO BID Claritin (Loratadine) 10 Mg Tablet 1 Tab PO DAILY Carvedilol 25 Mg Tablet 12.5 Mg PO BIDWMEALS Buspirone Hcl 5 Mg Tablet 1 Tab PO TID Bethanechol Chloride 25 Mg Tablet 25 Mg PO TID Atorvastatin Calcium 20 Mg Tablet 20 Mg PO HS Aspirin 81 Mg Tab.chew 1 Tab PO DAILY Vitals/I & O Vital Sign - Last 24 Hours 09/01/18 09/01/18 09/01/18 09/01/18 11:21 11:51 13:06 14:06 Resp 16 16 16 16 Pulse Ox 96 96 96 O2 Delivery Room Air Room Air 09/01/18 09/01/18 09/01/18 09/01/18 14:58 16:39 19:00 20:00 Temp 98.1 99.6 98.1 99.6 Pulse 97 97 85 Resp 17 18 B/P (MAP) 125/71 (89) 125/71 148/68 (94) Pulse Ox 96 97 O2 Delivery Room Air Room Air Room Air 09/01/18 09/01/18 09/01/18 09/02/18 20:41 22:23 23:00 03:00 Temp 98.1 98.0 98.1 98.0 Pulse 76 81 Resp 18 18 B/P (MAP) 128/60 (82) 130/64 (86) Pulse Ox 95 94 O2 Delivery Room Air Room Air Room Air Room Air 09/02/18 09/02/18 09/02/18 09/02/18 07:20 07:32 07:33 07:36 Temp 98.3 98.3 Pulse 78 78 Resp 18 B/P (MAP) 162/55 (90) 162/55 Pulse Ox 99 99 O2 Delivery Room Air Room Air Room Air O2 Flow Rate 4.0 09/02/18 09/02/18 08:33 10:57 Temp 99.2 99.2 Pulse 76 Resp 17 B/P (MAP) 142/47 (78) Pulse Ox 99 97 O2 Delivery Room Air Room Air O2 Flow Rate 4.0 Intake and Output 09/01/18 09/01/18 09/02/18 15:01 23:01 07:01 Intake Total 320 ml 540 ml 100 ml Balance 320 ml 540 ml 100 ml CARLEE WARNER MD Sep 02, 2018 11:07
[2018-09-02] MEDS ORDERED: CYCLOBENZAPRINE 10 MG TABLET. PO PRN (11:15)
[2018-09-02] MEDS ORDERED: CYCLOBENZAPRINE 10 MG TABLET. PO ONE (11:15)
[2018-09-02] MEDS ORDERED: ACETAMINOPHEN 325 MG TABLET. PO ONE (11:15)
--- NOTE | 2018-09-02 13:15 | PDOC3 ---
Discharge Summary Visit Information Date of Admission: Aug 29, 2018 Date of Discharge: Sep 02, 2018 Admitting Diagnosis Comment: hematemesis 2/2 Dielufoy lesion with blood clots anemia 2/2 GIB, upper. s/p 3u PRBC dm2 htn hld h/o CVA with rt leg weakness on eliquis and asa GERD anxiety depression mild malnutrition benign esophageal stricutre s/p mild dilation in EGD WARD, vasomotor headache Neck Stiffness Final Diagnosis Problems Medical Problems: (1) Upper GI bleeding Status: Acute Brief Hospital Course Allergies Allergies Coded Allergies Type Severity Reaction Last Updated Verified Penicillins Allergy Intermediate 08/29/18 Yes Vital Signs Vital Signs Date Time Temp Pulse Resp B/P (MAP) Pulse Ox O2 Delivery O2 Flow Rate FiO2 09/02/18 12:25 97 Room Air 4.0 09/02/18 10:57 99.2 76 17 142/47 (78) 99.2 Lab Results Laboratory Tests Test 09/02/18 07:35 Hemoglobin 9.3 g/dL (12.0-15.5) Hematocrit 26.5 % (36.0-47.0) Mean Corpuscular Hemoglobin Concent 35 g/dL (31-37) Laboratory Tests Test 09/02/18 07:35 Hemoglobin 9.3 g/dL (12.0-15.5) Hematocrit 26.5 % (36.0-47.0) Mean Corpuscular Hemoglobin Concent 35 g/dL (31-37) Brief Hospital Course Ms. Bro is a 73 old white frail female, [facility] resident admitted because of significant hematemesis, EGD done and found to have Dielufoy lesion. There was some clots present - was on aspirin 81 and Eliquis for history of CVA. We have been holding both. Hemoglobin stable at 9 on discharge. Some neck stiffness on discharge. We'll go back to rehabilitation. Cleared from GI. To maintain liquid diet until Saturday night and located GI soft Saturday and then advanced regular diet on Saturday. I advised or recommended stopping aspirin but may continue Eliquis if no more bleeding in hemoglobin stable to restart on Saturday 2 Notes today Discussed with GI Patient seen and examined, discharge cumulative time today 31 minutes Discharge Information Condition at Discharge: Improved, Stable Disposition/Orders: Other (snu) Scheduled Apixaban (Eliquis) 2.5 Mg Tablet, 2.5 MG PO BID for , (Reported) Entered as Reported by: BRYANNA GAMEZ on 08/29/18854 Last Action: HELD on 08/29/181120 by BART MORROW MD Aspirin (Aspirin) 81 Mg Tab.chew, 1 TAB PO DAILY for CVA , #30 Ref 3 (Reported) Entered as Reported by: BRYANNA GAMEZ on 08/29/18854 Last Action: HELD on 08/29/181120 by BART MORROW MD Atorvastatin Calcium (Atorvastatin Calcium) 20 Mg Tablet, 20 MG PO HS for FOR CHOLESTEROL, #30 Ref 0 (Reported) Entered as Reported by: BRYANNA GAMEZ on 08/29/18854 Last Action: Continued on 08/29/181120 by BART MORROW MD Bethanechol Chloride (Bethanechol Chloride) 25 Mg Tablet, 25 MG PO TID for , ( Reported) Entered as Reported by: BRYANNA GAMEZ on 08/29/18854 Last Action: HELD on 08/29/181120 by BART MORROW MD Buspirone Hcl (Buspirone Hcl) 5 Mg Tablet, 1 TAB PO TID for , #60 Ref 2 ( Reported) Entered as Reported by: BRYANNA GAMEZ on 08/29/18854 Last Action: Continued on 08/29/181120 by BART MORROW MD Carvedilol (Carvedilol) 25 Mg Tablet, 12.5 MG PO BIDWMEALS for CARDIAC, ( Reported) Entered as Reported by: BRYANNA GAMEZ on 08/29/18854 Last Action: Converted on 08/29/181120 by BART MORROW MD Cholecalciferol (Vitamin D3) (Vitamin D) 2,000 Unit Capsule, 1 CAP PO DAILY for , #30 Ref 3 (Reported) Entered as Reported by: BRYANNA GAMEZ on 08/29/18854 Last Action: HELD on 08/29/181120 by BART MORROW MD Dulaglutide (Trulicity) 1.5 Mg/0.5 Ml Pen.injctr, 1.5 MG SQ WEEKLYAC for , ( Reported) Entered as Reported by: BRYANNA GAMEZ on 08/29/18854 Last Action: HELD on 08/29/181120 by BART MORROW MD Lisinopril (Lisinopril) 20 Mg Tablet, 1 TAB PO DAILY for , #30 Ref 5 (Reported) Entered as Reported by: BRYANNA GAMEZ on 08/29/18854 Last Action: Continued on 08/29/181120 by BART MORROW MD Loratadine (Claritin) 10 Mg Tablet, 1 TAB PO DAILY for , #30 Ref 5 (Reported) Entered as Reported by: BRYANNA GAMEZ on 08/29/18854 Last Action: HELD on 08/29/181120 by BART MORROW MD Metformin Hcl (Metformin Hcl) 500 Mg Tablet, 500 MG PO BIDWMEALS for ANTI- DIABETIC, Ref 0 (Reported) Entered as Reported by: BRYANNA GAMEZ on 08/29/18854 Last Action: HELD on 08/29/181120 by BART MORROW MD Pantoprazole Sodium (Protonix) 40 Mg Granpkt.dr, 40 MG PO DAILY for , (Reported ) Entered as Reported by: BRYANNA GAMEZ on 08/29/18854 Last Action: HELD on 08/29/181120 by BART MORROW MD Sertraline Hcl (Zoloft) 100 Mg Tablet, 1 TAB PO DAILY for , #30 Ref 5 (Reported ) Entered as Reported by: BRYANNA GAMEZ on 08/29/18854 Last Action: Converted on 08/29/181120 by BART MORROW MD Sitagliptin Phosphate (Januvia) 50 Mg Tablet, 1 TAB PO DAILY for , #30 Ref 5 ( Reported) Entered as Reported by: BRYANNA GAMEZ on 08/29/18854 Last Action: HELD on 08/29/181120 by BART MORROW MD Trazodone Hcl (Trazodone Hcl) 50 Mg Tablet, 50 MG PO HS for , (Reported) Entered as Reported by: BRYANNA GAMEZ on 08/29/18854 Last Action: Continued on 08/29/181120 by BART MORROW MD Discontinued Medications Fluoxetine Hcl (Fluoxetine Hcl) 20 Mg Tablet, 20 MG PO DAILY, (Reported) Entered as Reported by: BRYANNA GAMEZ on 05/17/14 114 Last Action: Discontinued on 08/29/18854 by BRYANNA GAMEZ Hydrocodone/Acetaminophen (Lortab 5-325 mg Tablet) 1 Each Tablet, 1 TAB PO PRN Q4HRS PRN for PAIN, Ref 0 (Reported) Entered as Reported by: BRYANNA GAMEZ on 05/17/141141 Last Action: Discontinued on 08/29/18854 by BRYANNA GAMEZ Insulin Aspart (Novolog Flexpen) 100 Unit/1 Ml Insuln.pen, 100 UNIT SQ, ( Reported) Entered as Reported by: BRYANNA GAMEZ on 05/17/141141 Last Action: Discontinued on 08/29/18854 by BRYANNA GAMEZ Insulin Glargine,Hum.rec.anlog (Lantus) 100 Unit/1 Ml Vial, 100 UNIT SQ, ( Reported) Entered as Reported by: BRYANNA GAMEZ on 05/17/141141 Last Action: Discontinued on 08/29/18854 by BRYANNA GAMEZ Metoprolol Succinate (Toprol Xl) 50 Mg Tab.er.24h, 50 MG PO DAILY for FOR HYPERTENSION, #30 Ref 0 (Reported) Entered as Reported by: BRYANNA GAMEZ on 05/17/141141 Last Action: Discontinued on 08/29/18854 by CARLEE KENDALL MD Sep 02, 2018 13:15
--- NOTE | 2018-09-02 13:21 | DISCH ---
DISCHARGE DISCHARGE INFORMATION: DISCHARGE DATE: Sep 02, 2018 FINAL DIAGNOSIS Problems Medical Problems: (1) Upper GI bleeding Status: Acute CONDITION ON DISCHARGE: Stable CODE STATUS: Code Status: Full FPC: SNF STAY <30 DAYS: No HOSPICE: HOSPICE: No HOSPICE EVAL & TREAT: No LTAC: ADMIT TO LTAC: No POST DISCHARGE ORDERS: ACTIVITY ORDERS: No restrictions WEIGHT BEARING STATUS: No restrictions DIET AFTER DISCHARGE: liquid diet till , reg diet on saturday CHECKS AFTER DISCHARGE: CHECKS AFTER DISCHARGE: Check blood press - daily FOLLOW-UP: PHYSICIAN FOLLOW-UP: hold ASA indefinitely, may resume eliquis on saturday if no more bleeding TREATMENT/EQUIPMENT ORDERS: ADAPTIVE EQUIPMENT NEEDED: None Physical Therapy For: Evalulation/Treatment Occupational Therapy For: Evaluation/Treatment DISCHARGE MEDICATIONS: Home Meds Reported Medications Cholecalciferol (Vitamin D3) (VITAMIN D) 2,000 Unit Capsule, 1 CAP PO DAILY for , #30 CAP 3 Refills 08/29/18 Dulaglutide (Trulicity) 1.5 Mg/0.5 Ml Pen.injctr, 1.5 MG SQ WEEKLYAC for , EACH 08/29/18 Trazodone Hcl (TRAZODONE HCL) 50 Mg Tablet, 50 MG PO HS for , TAB 08/29/18 Sertraline Hcl (ZOLOFT) 100 Mg Tablet, 1 TAB PO DAILY for , #30 TAB 5 Refills 08/29/18 Pantoprazole Sodium (PROTONIX) 40 Mg Granpkt.dr, 40 MG PO DAILY for , TAB 08/29/18 Metformin Hcl (METFORMIN HCL) 500 Mg Tablet, 500 MG PO BIDWMEALS for ANTI- DIABETIC, TAB 0 Refills 08/29/18 Lisinopril (LISINOPRIL) 20 Mg Tablet, 1 TAB PO DAILY for , #30 TAB 5 Refills 08/29/18 Sitagliptin Phosphate (JANUVIA) 50 Mg Tablet, 1 TAB PO DAILY for , #30 TAB 5 Refills 08/29/18 Apixaban (ELIQUIS) 2.5 Mg Tablet, 2.5 MG PO BID for , TAB 08/29/18 Loratadine (CLARITIN) 10 Mg Tablet, 1 TAB PO DAILY for , #30 TAB 5 Refills 08/29/18 Carvedilol (CARVEDILOL) 25 Mg Tablet, 12.5 MG PO BIDWMEALS for CARDIAC, TAB 08/29/18 Buspirone Hcl (BUSPIRONE HCL) 5 Mg Tablet, 1 TAB PO TID for , #60 TAB 2 Refills 08/29/18 Bethanechol Chloride (BETHANECHOL CHLORIDE) 25 Mg Tablet, 25 MG PO TID for , TAB 08/29/18 Atorvastatin Calcium (ATORVASTATIN CALCIUM) 20 Mg Tablet, 20 MG PO HS for FOR CHOLESTEROL, #30 TAB 0 Refills 08/29/18 Aspirin (ASPIRIN) 81 Mg Tab.chew, 1 TAB PO DAILY for CVA , #30 TAB 3 Refills 08/29/18 Discontinued Reported Medications Insulin Glargine,Hum.rec.anlog (LANTUS) 100 Unit/1 Ml Vial, 100 UNIT SQ, VIAL 05/17/14 Insulin Aspart (NOVOLOG FLEXPEN) 100 Unit/1 Ml Insuln.pen, 100 UNIT SQ, SYR 05/17/14 Fluoxetine Hcl (FLUOXETINE HCL) 20 Mg Tablet, 20 MG PO DAILY, TAB 05/17/14 Hydrocodone/Acetaminophen (Lortab 5-325 mg Tablet) 1 Each Tablet, 1 TAB PO PRN Q4HRS PRN for PAIN, TAB 0 Refills 05/17/14 Metoprolol Succinate (TOPROL XL) 50 Mg Tab.er.24h, 50 MG PO DAILY for FOR HYPERTENSION, #30 TAB 0 Refills 05/17/14 CARLEE WARNER MD Sep 02, 2018 13:21
[2018-09-02 14:20] VITALS: BP 145/55
--- NOTE | 2018-09-02 15:12 | NUR ---
SW phoned and faxed orders to [facility]. Pt will transport via [facility] at 1530. Packet on chart. Pt stated she will notify her family. RN notified.
--- NOTE | 2018-09-02 17:01 | NUR ---
Discharge Note: [facility] Discharge instructions and discharge home medications reviewed with Haritha at [facility] and a copy given. All questions have been answered and understanding verbalized. The following instructions and handouts were given: transfer of care Discontinued lines and drains: 20 gauge right FA, tip intact. Patient tolerated well. Patient [facility] via EMS.
[2018-09-03] MEDS ORDERED: POLYETHYLENE GLYCOL 3350 17 GM PACKET. PO SCH (09:00)
== END 2018-09-02 16:55 | DRG 377 ==
LOC: ER 04:21 → 1 WEST ICU 05:00 → 6 SOUTH 08-30 20:21
PROVIDERS: ADMIT Internal Medicine; ATTEND Internal Medicine
PROC: 30233N1 Transfusion of Nonautologous Red Blood Cells into Peripheral Vein, Percutaneous Approach (ICD-10-PCS; 2018-08-29)
PROC: 0DJ08ZZ Inspection of Upper Intestinal Tract, Via Natural or Artificial Opening Endoscopic (ICD-10-PCS; principal; 2018-08-29 10:30)
DX: K31.82 Dieulafoy lesion (hemorrhagic) of stomach and duodenum (principal); N17.0 Acute kidney failure with tubular necrosis; E44.1 Mild protein-calorie malnutrition; D62 Acute posthemorrhagic anemia; N39.0 Urinary tract infection, site not specified; I69.341 Monoplegia of lower limb following cerebral infarction affecting right dominant side; K21.9 Gastro-esophageal reflux disease without esophagitis; F41.9 Anxiety disorder, unspecified; F32.9 Major depressive disorder, single episode, unspecified; E78.00 Pure hypercholesterolemia, unspecified; E78.5 Hyperlipidemia, unspecified; G89.29 Other chronic pain; M43.6 Torticollis; K29.50 Unspecified chronic gastritis without bleeding; I10 Essential (primary) hypertension; E11.9 Type 2 diabetes mellitus without complications; K22.2 Esophageal obstruction; Z79.4 Long term (current) use of insulin; Z90.49 Acquired absence of other specified parts of digestive tract; Z90.710 Acquired absence of both cervix and uterus; Z98.51 Tubal ligation status; Z79.01 Long term (current) use of anticoagulants; Z79.82 Long term (current) use of aspirin; Z79.899 Other long term (current) drug therapy; Z80.9 Family history of malignant neoplasm, unspecified; Z68.26 Body mass index [BMI] 26.0-26.9, adult
CPT/HCPCS: 36415; 43235; 80048; 80053; 81001; 82274; 83690; 85014; 85018; 85025; 85610; 85730; 86850; 86900; 86901; 86920; 87086; 87641; 93005; 96361; 96365; 96375; C9113; J1170; J2270; J2405; J2704; J7030; J7040; P9016; 97116; 99285-25

== ENCOUNTER 2020-01-10 22:57 | Emergency (ER) | payer MEDICARE, MEDICAID ==
[~2020-01-10] VITALS: Ht 156.2 cm; Wt 56.8 kg
[~2020-01-10 22:57] MED LIST changes: -0.9 % SOD CHL for STERILE FIELD 10 ML DISP.SYRIN. ONE; +ACET325T9 PO; +APIX2.5T PO; +ASPI-630 PO; +ATOR20TA58 PO; +BETH25TA PO; +BUSP5TAB PO; +CARV25TA2 PO; +CHOL2000 PO; +DULA1.5P SQ; +HYDR-2761 PO; +LISI-334 PO; +LORA10TA68 PO; +MAGN24003 PO; +METF500T16 PO; +OMEP20TA63 PO; -ONDANSETRON PF 4 MG/2 ML VIAL. ONE; +PANT40GR PO; +SERT100T PO; +SITA50TA PO; +TRAZ-118 PO
--- NOTE | 2020-01-10 23:23 | PHYS DOC ---
Past Medical History Past Medical History: Anxiety, CVA, Depression, Diabetes-Type I, GERD, High Cholesterol, Hypertension Additional Past Medical Histor: URINARY RETENTION, Past Surgical History: Cholecystectomy, Hysterectomy, Tubal ligation, Other Additional Past Surgical Histo: unknown Smoking Status: Never Smoker Alcohol Use: None Drug Use: None General Adult EDM: Chief Complaint: MECHANICAL FALL HPI: HPI: Patient is a 74 year old female who presents via EMS after reportedly falling at nursing facility. Fall was unwitnessed but patient indicates that she was reaching to grab a hold of a pole to help her get up and then she fell and hit her head. Patient does not believe that she lost consciousness. She does complain of some neck pain. She rates the pain is mild. She denies any chest pain or shortness of breath. [] Review of Systems: Review of Systems: Constitutional: Denies fever or chills. [] Eyes: Denies change in visual acuity. [] Respiratory: Denies cough or shortness of breath. [] Cardiovascular: Denies chest pain or edema. [] Musculoskeletal: Complains of neck pain. [] Integument: Denies rash. [] Neurologic: Denies headache, focal weakness or sensory changes. [] Heart Score: Risk Factors: Risk Factors: DM, Current or recent (<one month) smoker, HTN, HLP, family history of CAD, obesity. Risk Scores: Score 0 - 3: 2.5% MACE over next 6 weeks - Discharge Home Score 4 - 6: 20.3% MACE over next 6 weeks - Admit for Clinical Observation Score 7 - 10: 72.7% MACE over next 6 weeks - Early Invasive Strategies Allergies: Allergies: Allergies Coded Allergies Type Severity Reaction Last Updated Verified Penicillins Allergy Intermediate 08/29/18 Yes Physical Exam: PE: Constitutional: Well developed, well nourished, no acute distress, non-toxic appearance. [] HENT: Normocephalic, atraumatic, bilateral external ears normal, oropharynx moist, no oral exudates, nose normal. [] Eyes: PERRLA, EOMI, conjunctiva normal, no discharge. [] Neck: C-collar is in place. [] Cardiovascular: Regular rate and rhythm [] Lungs & Thorax: Bilateral breath sounds clear to auscultation [] Abdomen: Bowel sounds normal, soft, no tenderness. [] Skin: Warm, dry, no erythema, no rash. [] Extremities: No tenderness, no cyanosis, no clubbing, ROM intact. [] Neurologic: Awake and alert, no focal deficits noted. [] Current Patient Data: Labs: Laboratory Tests Test 01/10/20 23:04 Glucose (Fingerstick) 209 mg/dL (70-99) H EKG: EKG: [] Radiology/Procedures: Radiology/Procedures: [] Impression: PROCEDURE: CT HEAD AND CERVICAL SPINE WO EXAM: CT HEAD WITHOUT IV CONTRAST CLINICAL HISTORY: Fall COMPARISON: None. TECHNIQUE: Routine CT of the head without contrast. Soft tissues and bone windows were reviewed. PQRS compliance statement - One or more of the following individualized dose reduction techniques were utilized for this study: 1. Automated exposure control 2. Adjustment of the mA and/or kV according to patient size 3. Use of iterative reconstruction technique FINDINGS: There is no evidence of hemorrhage, mass or extra-axial fluid collection. An infarct is seen in the medial left occipital lobe with associated encephalomalacia. Perera-white differentiation is maintained with no evidence of edema. Subcortical, periventricular and deep white matter foci of hypoattenuation likely changes of chronic small vessel disease. There is no mass effect or shift of the intracranial structures. Ex vacuo Dilatation of the posterior horn left lateral ventricle. The ventricles, basilar cisterns and cortical sulci are normal in size and configuration for the patients stated age. The cerebellum and brainstem are unremarkable. The calvarium demonstrates no evidence of fracture or focal lesion. There is normal aeration of the visualized paranasal sinuses and mastoid air cells. The visualized portions of the orbits are normal. IMPRESSION: Chronic appearing encephalomalacia the medial left occipital lobe likely from old infarct. White matter changes of chronic small vessel disease. EXAM: CT CERVICAL SPINE WITHOUT IV CONTRAST CLINICAL HISTORY: Reason: fall / Spl. Instructions: / History: COMPARISON: None available. TECHNIQUE: Helical CT of the cervical spine was performed. Axial, coronal and sagittal reformatted images were also performed. PQRS compliance statement - One or more of the following individualized dose reduction techniques were utilized for this study: 1. Automated exposure control 2. Adjustment of the mA and/or kV according to patient size 3. Use of iterative reconstruction technique FINDINGS: Vertebral body heights are preserved. No evidence for acute fracture. There is trace anterolisthesis of C3 on C4, C4-C5 and C5 on C6 with associated posterior disc osteophyte complexes at these levels, most prominent at C3-4. Associated at least moderate neural foraminal narrowing is seen at these levels as well. TMJ degenerative changes are seen bilaterally. 1.5 x 1.3 cm right thyroid nodule is seen. IMPRESSION: 1. Multilevel spondylosis as above 2. Negative acute fracture. 3. Multilevel listhesis likely degenerative. 4. 1.5 cm right thyroid nodule. If this has not been previously assessed, further evaluation with ultrasound is recommended. Electronically signed by: Juan Ramon Luong MD (01/10/2020 11:58 PM) [facility] DICTATED and SIGNED BY: JUAN RAMON LUONG MD DATE: 01/10/20 6397 Course & Med Decision Making: Course & Med Decision Making Pertinent Labs and Imaging studies reviewed. (See chart for details) [] Dragon Disclaimer: Dragon Disclaimer: This electronic medical record was generated, in whole or in part, using a voice recognition dictation system. Departure Departure Impression: Primary Impression: Closed head injury Qualified Codes: S09.90XA - Unspecified injury of head, initial encounter Additional Impressions: Thyroid nodule Cervical sprain Qualified Codes: S13.9XXA - Sprain of joints and ligaments of unspecified parts of neck, initial encounter Disposition: 01 HOME, SELF-CARE Condition: STABLE Referrals: RACHELLE FELDER MD (PCP) Patient Instructions: Cervical Sprain, Head Injury, Adult BRANDY BELL Jr. DO January 10, 2020 23:23
--- NOTE | 2020-01-11 00:02 | RAD ---
EXAM: CT HEAD WITHOUT IV CONTRAST CLINICAL HISTORY: Fall COMPARISON: None. TECHNIQUE: Routine CT of the head without contrast. Soft tissues and bone windows were reviewed. PQRS compliance statement - One or more of the following individualized dose reduction techniques were utilized for this study: 1. Automated exposure control 2. Adjustment of the mA and/or kV according to patient size 3. Use of iterative reconstruction technique FINDINGS: There is no evidence of hemorrhage, mass or extra-axial fluid collection. An infarct is seen in the medial left occipital lobe with associated encephalomalacia. Perera-white differentiation is maintained with no evidence of edema. Subcortical, periventricular and deep white matter foci of hypoattenuation likely changes of chronic small vessel disease. There is no mass effect or shift of the intracranial structures. Ex vacuo Dilatation of the posterior horn left lateral ventricle. The ventricles, basilar cisterns and cortical sulci are normal in size and configuration for the patients stated age. The cerebellum and brainstem are unremarkable. The calvarium demonstrates no evidence of fracture or focal lesion. There is normal aeration of the visualized paranasal sinuses and mastoid air cells. The visualized portions of the orbits are normal. IMPRESSION: Chronic appearing encephalomalacia the medial left occipital lobe likely from old infarct. White matter changes of chronic small vessel disease. EXAM: CT CERVICAL SPINE WITHOUT IV CONTRAST CLINICAL HISTORY: Reason: fall / Spl. Instructions: / History: COMPARISON: None available. TECHNIQUE: Helical CT of the cervical spine was performed. Axial, coronal and sagittal reformatted images were also performed. PQRS compliance statement - One or more of the following individualized dose reduction techniques were utilized for this study: 1. Automated exposure control 2. Adjustment of the mA and/or kV according to patient size 3. Use of iterative reconstruction technique FINDINGS: Vertebral body heights are preserved. No evidence for acute fracture. There is trace anterolisthesis of C3 on C4, C4-C5 and C5 on C6 with associated posterior disc osteophyte complexes at these levels, most prominent at C3-4. Associated at least moderate neural foraminal narrowing is seen at these levels as well. TMJ degenerative changes are seen bilaterally. 1.5 x 1.3 cm right thyroid nodule is seen. IMPRESSION: 1. Multilevel spondylosis as above 2. Negative acute fracture. 3. Multilevel listhesis likely degenerative. 4. 1.5 cm right thyroid nodule. If this has not been previously assessed, further evaluation with ultrasound is recommended. Electronically signed by: Juan Ramon Romano MD (01/10/2020 11:58 PM) [facility]
[2020-01-11 00:20] VITALS: BP 171/74
[2020-01-11] MEDS ORDERED: CYCL5TAB PO (00:32)
[2020-01-11] MEDS ORDERED: TRAM50TA PO (00:32)
== END 2020-01-11 02:12 | disposition home or self-care (01) ==
LOC: ER 22:57
DX: S13.9XXA Sprain of joints and ligaments of unspecified parts of neck, initial encounter (principal); S09.90XA Unspecified injury of head, initial encounter; E04.1 Nontoxic single thyroid nodule; K21.9 Gastro-esophageal reflux disease without esophagitis; I10 Essential (primary) hypertension; E78.00 Pure hypercholesterolemia, unspecified; E10.9 Type 1 diabetes mellitus without complications; Z86.73 Personal history of transient ischemic attack (TIA), and cerebral infarction without residual deficits; Z88.0 Allergy status to penicillin; W18.09XA Striking against other object with subsequent fall, initial encounter; Y93.89 Activity, other specified; Y92.128 Other place in nursing home as the place of occurrence of the external cause; Y99.8 Other external cause status
CPT/HCPCS: 70450; 72125; 82962; 99285-25